=== PATIENT | female | born 1980 | race Hispanic/Latino ===

== ENCOUNTER → 2016-05-30 | Outpatient (CLI) | payer BC ==
[~2016-05-30] MED LIST: PANT40TA2 PO
[2016-05-30 10:06] LABS: MEAN PLATELET VOLUME 9.9 FL (7.4-10.4); RED BLOOD COUNT 4.63 10^6/uL (4.35-5.85); RED CELL DISTRIBUTION WIDTH 12.1 % (10.0-14.5); WHITE BLOOD COUNT 8.7 10^3/uL (4.3-11.0)
[2016-05-30 10:35] LABS: ALANINE AMINOTRANSFERASE 11 U/L (0-55); ALBUMIN 4.3 G/DL (3.2-4.5); ANION GAP 7 MMOL/L (5-14); ASPARTATE AMINO TRANSFERASE 14 U/L (5-34); BLOOD UREA NITROGEN 11 MG/DL (7-18); BUN/CREATININE RATIO 14; CALCIUM 9.3 MG/DL (8.5-10.1); CARBON DIOXIDE 25 MMOL/L (21-32); CHLORIDE 106 MMOL/L (98-107); CREATININE SERUM 0.76 MG/DL (0.60-1.30); GFR ESTIMATED > 60; GLUCOSE 101 MG/DL (70-105); POTASSIUM 4.1 MMOL/L (3.6-5.0); SODIUM 138 MMOL/L (135-145); TOTAL PROTEIN 7.3 G/DL (6.4-8.2)
[2016-05-30 10:55] LABS: THYROID STIMULATING HORMONE 1.23 UIU/ML (0.35-4.94)
== END ==
LOC: LAB 09:40
PROVIDERS: ATTEND Nurse Practitioner Community Health
DX: F41.9 Anxiety disorder, unspecified (principal)
CPT/HCPCS: 36415; 80053; 84439; 84443; 85027

== ENCOUNTER 2018-03-13 14:25 | Inpatient (IN) | payer BC ==
[~2018-03-13] VITALS: Ht 157.5 cm; Wt 59.9 kg
[2018-03-13] VITALS (14 sets, daily range): BP systolic 86–113; BP diastolic 50–77
--- NOTE | 2018-03-13 14:15 | NUR ---
GUY COLLIER presented to unit via AMBULATION from DR DILLARD'S OFFICE, accompanied by DR DILLARD, with c/o INDUCTION OF LABOR. GUY COLLIER weighed, gowned, voided, and to bed. EFHM and TOCO applied, VS taken. GUY COLLIER oriented to bed controls, call light, TV, heat, and A/C controls.
[2018-03-13] MEDS: CATHETER FLUSH 10 ML SYR IV SCH ×2 (14:35→23:00)
--- OUTSIDE RECORDS SUMMARY | 2018-03-13 15:39 | XMS REPORT ---
Author Author MILTON MONTOYA Organization [employer] Address Unknown Phone Unavailable Care Team Providers Care Manager Product Name Role Phone MILTON MONTOYA CP Unavailable Allergies, Adverse Reactions, Alerts Substance Reaction Event Type Penicillin V Potassium Info Not Available Drug Allergy Problems Problem Type Condition Code Onset Dates Condition Status Problem Costochondritis 733.6 Active Problem Abdominal pain, left lower quadrant 789.04 Active Problem Acute pharyngitis 462 Active Assessment Abdominal discomfort R10.9 Active Medications No Known Medications Procedures Procedure Coding System Code Date Office Visit, Est Pt., Level 3 CPT-4 14541 August 18, 2015 IMMUNOASSAY,INFECTIOUS AGENT CPT-4 05998 August 18, 2015 Vital Signs Date/Time: August 18, 2015 Cardiac Monitoring Heart Rate 76 bpm Weight 117.4 lbs Height 61 in Blood Pressure Diastolic 62 mmHg Blood Pressure Systolic 102 mmHg Results No Known Results Summary Purpose [employer] Submission
--- OUTSIDE RECORDS SUMMARY | 2018-03-13 15:39 | XMS REPORT ---
Author Author ERNIE GALLOWAY Organization [facility] Address [address] [place] [address] Care Team Providers Care Instructional Systems Designer Name Role Phone ERNIE GALLOWAY Unavailable PROBLEMS Type Condition ICD9-CM Code ZSS08-FB Code Onset Dates Condition Status SNOMED Code Problem Anxiety disorder, unspecified F41.9 Active 78389635 Problem Hyperventilation syndrome F45.8 Active 778060338 Problem Abdominal pain, left lower quadrant 789.04 Active 392088981 Problem Acute pharyngitis 462 Active 382297988 Problem Costochondritis 733.6 Active 14229593 ALLERGIES No Information ENCOUNTERS Encounter Location Date Diagnosis [facility] [id number] [place] [phone] Oct, Acute cystitis without hematuria N30.00 [facility] [id number] [place] [address] May, [facility] IN [facility] [id number] [place] [phone] May, Anxiety disorder, unspecified F41.9 and Hyperventilation syndrome F45.8 [facility] [id number] [place] [address] Aug, Abdominal discomfort R10.9 [facility] [id number] [place] [address] May, [facility] [address] [address] May, [facility] [id number] [place] [address] Dec, [facility] [address] [address] Dec, [facility] [id number], [place] [address] Dec, [facility] [address] [address] Dec, [facility] [id number], [place] [address] Dec, [facility] [id number] [place] [address] Sep, [facility] [id number] [place] [address] Feb, [facility] [id number], [place] [address] Feb, [facility] [id number], [place] [address] Feb, [facility] [id number] [address] Apr, IMMUNIZATIONS No Known Immunizations SOCIAL HISTORY Never Assessed REASON FOR VISIT congestion PLAN OF CARE VITAL SIGNS MEDICATIONS No Known Medications RESULTS No Results PROCEDURES No Known procedures INSTRUCTIONS MEDICATIONS ADMINISTERED No Known Medications
--- OUTSIDE RECORDS SUMMARY | 2018-03-13 15:39 | XMS REPORT ---
Author Author ERNIE GALLOWAY Organization [facility] Address [address] [place] [address] Care Team Providers Care Java Software Name Role Phone ERNIE GALLOWAY Unavailable PROBLEMS Type Condition ICD9-CM Code UKS41-LO Code Onset Dates Condition Status SNOMED Code Problem Anxiety disorder, unspecified F41.9 Active 28385923 Problem Hyperventilation syndrome F45.8 Active 458116939 Problem Abdominal pain, left lower quadrant 789.04 Active 332475294 Problem Acute pharyngitis 462 Active 053387301 Problem Costochondritis 733.6 Active 20035270 ALLERGIES No Known Allergies ENCOUNTERS Encounter Location Date Diagnosis [facility] [id number] [place] [address] Oct, Acute cystitis without hematuria N30.00 [facility] [id number] [place] [address] May, [facility] [id number] [place] [address] May, Anxiety disorder, unspecified F41.9 and Hyperventilation syndrome F45.8 [facility] [id number] [place] [address] Aug, Abdominal discomfort R10.9 [facility] [id number] [place] [address] May, [facility] [address] [address] May, [facility] [id number] [place] [address] Dec, [facility] [address] [address] Dec, [facility] [id number] [address] Dec, [facility] [address] [place] [address] Dec, [facility] [address] [address] Dec, [facility] [id number] [place] [address] Sep, [facility] [id number] [place] [address] Feb, [facility] [id number] [place] [address] Feb, [facility] [address] [place] [address] Feb, [facility] [address] [place] [address] Apr, IMMUNIZATIONS No Known Immunizations SOCIAL HISTORY Never Assessed REASON FOR VISIT Lower back pain for about 1 week [facility] PLAN OF CARE VITAL SIGNS Height 61 in 2016-11-03 Weight 120.4 lbs 2016-11-03 Temperature 98.1 degrees Fahrenheit 2016-11-03 Heart Rate 60 bpm 2016-11-03 Respiratory Rate 18 2016-11-03 BMI 22.75 kg/m2 2016-11-03 Blood pressure systolic 98 mmHg 2016-11-03 Blood pressure diastolic 62 mmHg 2016-11-03 MEDICATIONS Medication Instructions Dosage Frequency Start Date End Date Duration Status Macrobid 100 MG Orally every 12 hrs 1 capsule with food 12h Oct, Oct, 7 day(s) Active HydrOXYzine HCl 25 MG Orally every 6 hrs 1 tablet as needed for anxiety 6h May, Active Diflucan 150 MG 1 tablet Oct, Nov, 10 day(s) Active RESULTS Name Result Date Reference Range UA LONG DIP (IN HOUSE) 2016-11-03 Lot # [id number] Exp date 2017-10-11 Clarity clear Color yellow Odor none GLU negative KATHIA negative KET negative SG 1.025 BLO negative pH 7.0 Protein negative URO 0.2 NIT negative ANDI negative Lot # [id number] Exp date May 2017 PROCEDURES Procedure Date Ordered Result Body Site URINALYSIS, AUTO, W/O SCOPE Nov 03, 2016 INSTRUCTIONS MEDICATIONS ADMINISTERED No Known Medications
--- OUTSIDE RECORDS SUMMARY | 2018-03-13 15:40 | XMS REPORT | Continuity of Care Document ---
Author Author [facility] Address Unknown Phone Unavailable Allergies Active Description Code Type Severity Reaction Onset Reported/Identified Relationship to Patient Clinical Status Yes No Known Drug Allergies [id number] Drug Allergy Unknown N/A 05/19/2007 Medications There is no data. Problems Date Dx Coded Attending Type Code Diagnosis Diagnosed By 09/26/2007 616.10 Vaginitis And Vulvovaginitis Unspecified 09/26/2007 ROBERT AVILA PA-C 616.10 Vaginitis And Vulvovaginitis Unspecified 09/26/2007 616.10 Vaginitis And Vulvovaginitis Unspecified 09/26/2007 SIOBHAN STEWART MD 616.10 Vaginitis And Vulvovaginitis Unspecified 09/02/2008 724.1 Midback Pain 09/02/2008 788.41 Urinary Frequency Increased 09/02/2008 ROBERT AVILA PA-C 724.1 Midback Pain 09/02/2008 ROBERT AVILA PA-C 788.41 Urinary Frequency Increased 09/02/2008 724.1 Midback Pain 09/02/2008 788.41 Urinary Frequency Increased 09/02/2008 SIOBHAN STEWART MD 724.1 Midback Pain 09/02/2008 SIOBHAN STEWART MD 788.41 Urinary Frequency Increased 03/06/2010 V25.02 CONTRACEPTION COUNSELING- ANY METHOD 03/06/2010 V72.31 EXPEDITIONARY FORCE COMBAT SKILLS EXAM, ROUTINE 03/06/2010 ROBERT AVILA PA-C V25.02 CONTRACEPTION COUNSELING- ANY METHOD 03/06/2010 ROBERT AVILA PA-C V72.31 EXPEDITIONARY FORCE COMBAT SKILLS EXAM, ROUTINE 03/06/2010 V25.02 CONTRACEPTION COUNSELING- ANY METHOD 03/06/2010 V72.31 EXPEDITIONARY FORCE COMBAT SKILLS EXAM, ROUTINE 03/06/2010 SIOBHAN STEWART MD V25.02 CONTRACEPTION COUNSELING- ANY METHOD 03/06/2010 SIOBHAN STEWART MD V72.31 EXPEDITIONARY FORCE COMBAT SKILLS EXAM, ROUTINE 04/19/2010 780.2 Syncope And Collapse 04/19/2010 785.1 Palpitations 04/19/2010 ROBERT AVILA PA-C 780.2 Syncope And Collapse 04/19/2010 ROBERT AVILA PA-C 785.1 Palpitations 04/19/2010 780.2 Syncope And Collapse 04/19/2010 785.1 Palpitations 04/19/2010 SIOBHAN STEWART MD 780.2 Syncope And Collapse 04/19/2010 SIOBHAN STEWART MD 785.1 Palpitations 04/27/2010 610.1 DIFFUSE CYSTIC MASTOPATHY 04/27/2010 799.21 Nervousness 04/27/2010 ROBERT AVILA PA-C 610.1 DIFFUSE CYSTIC MASTOPATHY 04/27/2010 ROBERT AVILA PA-C 799.21 Nervousness 04/27/2010 610.1 DIFFUSE CYSTIC MASTOPATHY 04/27/2010 799.21 Nervousness 04/27/2010 SIOBHAN STEWART MD 610.1 DIFFUSE CYSTIC MASTOPATHY 04/27/2010 SIOBHAN STEWART MD 799.21 Nervousness 03/03/2012 733.6 TIETZE'S DISEASE 03/03/2012 ROBERT AVILA PA-C 733.6 TIETZE'S DISEASE 03/03/2012 733.6 TIETZE'S DISEASE 03/03/2012 SIOBHAN STEWART MD 733.6 TIETZE'S DISEASE 12/19/2012 SIOBHAN STEWART MD 462 PHARYNGITIS ACUTE 01/06/2013 SIOBHAN STEWART MD 789.04 ABDOMINAL PAIN LEFT LOWER QUADRANT 09/24/2014 Ot 592.0 09/24/2014 Ot 789.09 09/24/2014 Ot 611.71 09/24/2014 Ot 724.5 09/24/2014 Ot 786.50 09/24/2014 JOIE BUSH, MATTHEW March Ot 611.71 09/24/2014 Ot 611.71 09/24/2014 Ot 620.2 09/24/2014 Ot 625.9 09/24/2014 Ot 789.00 09/24/2014 Ot 790.5 09/28/2014 CHEPE VEGA TODDLER GUIDE Ot 625.9 10/19/2014 CHEPE VEGA TODDLER GUIDE Ot 625.9 10/21/2014 CHEPE VEGA TODDLER GUIDE Ot 625.9 06/10/2015 Ot 592.0 CALCULUS OF KIDNEY 06/10/2015 Ot 789.09 ABDOMINAL PAIN, OTHER SPECIFIED SITE 06/10/2015 Ot 611.71 MASTODYNIA 06/10/2015 Ot 724.5 BACKACHE NOS 06/10/2015 Ot 786.50 CHEST PAIN NOS 06/10/2015 JOIE BUSH, MATTHEW March Ot 611.71 MASTODYNIA 06/10/2015 Ot 611.71 MASTODYNIA 06/10/2015 Ot 620.2 OVARIAN CYST NEC/NOS 06/10/2015 Ot 625.9 FEM GENITAL SYMPTOMS NOS 06/10/2015 Ot 789.00 ABDOMINAL PAIN, UNSPECIFIED SITE 06/10/2015 Ot 790.5 ABN SERUM ENZY LEVEL NEC 06/10/2015 HCEPE VEGA TODDLER GUIDE Ot 625.9 FEM GENITAL SYMPTOMS NOS 06/14/2015 FELIPE WILL DIESEL ENGINE PIPE FITTER Ot K59.00 CONSTIPATION, UNSPECIFIED 06/15/2015 Ot 592.0 CALCULUS OF KIDNEY 06/15/2015 Ot 789.09 ABDOMINAL PAIN, OTHER SPECIFIED SITE 06/15/2015 Ot 611.71 MASTODYNIA 06/15/2015 Ot 724.5 BACKACHE NOS 06/15/2015 Ot 786.50 CHEST PAIN NOS 06/15/2015 JOIE BUSH, MATTHEW March Ot 611.71 MASTODYNIA 06/15/2015 Ot 611.71 MASTODYNIA 06/15/2015 Ot 620.2 OVARIAN CYST NEC/NOS 06/15/2015 Ot 625.9 FEM GENITAL SYMPTOMS NOS 06/15/2015 Ot 789.00 ABDOMINAL PAIN, UNSPECIFIED SITE 06/15/2015 Ot 790.5 ABN SERUM ENZY LEVEL NEC 06/15/2015 CHEPE VEGA TODDLER GUIDE Ot 625.9 FEM GENITAL SYMPTOMS NOS 06/15/2015 FELIPE WILL DIESEL ENGINE PIPE FITTER Ot K59.00 CONSTIPATION, UNSPECIFIED 06/15/2015 FELIPE WILL DIESEL ENGINE PIPE FITTER Ot K59.00 CONSTIPATION, UNSPECIFIED 07/07/2015 FELIPE WILL DIESEL ENGINE PIPE FITTER Ot K59.00 CONSTIPATION, UNSPECIFIED 10/03/2015 FELIPE WILL DIESEL ENGINE PIPE FITTER Ot K59.00 CONSTIPATION, UNSPECIFIED 10/03/2015 JENNIFER BUSH, MARCIA Ferrell Ot K21.9 GASTRO-ESOPHAGEAL REFLUX DISEASE WITHOUT 10/03/2015 JENNIFER BUSH, MARCIA Ferrell Ot Z01.818 ENCOUNTER FOR OTHER PREPROCEDURAL EXAMIN 10/03/2015 JENNIFER BUSH, MARCIA Ferrell Ot K20.9 ESOPHAGITIS, UNSPECIFIED 10/03/2015 JENNIFER BUSH, MARCIA Ferrell Ot K25.9 GASTRIC ULCER, UNSP ACUTE OR CHRONIC, 10/03/2015 JENNIFER BUSH, MARCIA Ferrell Ot R19.4 CHANGE IN BOWEL HABIT 10/04/2015 JENNIFER BUSH, MARCIA Ferrell Ot K20.9 ESOPHAGITIS, UNSPECIFIED 10/04/2015 JENNIFER BUSH, MARCIA Ferrell Ot K25.9 GASTRIC ULCER, UNSP ACUTE OR CHRONIC, 10/04/2015 JENNIFER BUSH, MARCIA Ferrell Ot R19.4 CHANGE IN BOWEL HABIT 06/05/2016 ERNIE GALLOWAY Ot F41.9 ANXIETY DISORDER, UNSPECIFIED 06/20/2016 ERNIE GALLOWAY Ot F41.9 ANXIETY DISORDER, UNSPECIFIED 07/02/2016 FELIPE WILL Olvin DIESEL ENGINE PIPE FITTER Ot K59.00 CONSTIPATION, UNSPECIFIED 09/30/2017 ERNIE GALLOWAY Ot F41.9 ANXIETY DISORDER, UNSPECIFIED 10/03/2017 ERNIE GALLOWAY Ot F41.9 ANXIETY DISORDER, UNSPECIFIED 10/07/2017 KORY DILLARD DO S Ot Z36.89 ENCOUNTER FOR OTHER SPECIFIED 10/07/2017 TROYECH KORY TODD S Ot Z3A.17 17 WEEKS GESTATION OF 10/23/2017 TROYECH KORY TODD S Ot Z36.89 ENCOUNTER FOR OTHER SPECIFIED 10/23/2017 TROYECH DOKORY S Ot Z3A.17 17 WEEKS GESTATION OF Procedures Code Description [place] [address] ROUTINE VENIPUNCTURE 03/04/2012 96594 UA W/ CULTURE IF INDICATED 03/04/2012 68105 CMP 03/04/2012 2852218 GFR CALC (RESULT ONLY) 03/04/2012 21344 ROUTINE VENIPUNCTURE 01/06/[address] ABDOMEN & PELVIS W/O CONTRAST 01/06/2013 94790 UA W/ CULTURE IF INDICATED 01/06/2013 83994 URINE TEST (IN- HOUSE) 01/06/2013 65646 CBC 01/07/2013 1442357 GFR CALC (RESULT ONLY) 01/07/2013 11699 CMP 01/07/2013 Results Test Result Range Urine beta human chorionic gonadotropin (hCG) measurement - 10/03/15 10:23 Urine beta human chorionic gonadotropin (hCG) measurement NEGATIVE NEGATIVE Automated blood complete blood count (hemogram) panel - 05/30/16 10:00 Blood leukocytes automated count (number/volume) 8.7 10*3/uL 4.3-11.0 Blood erythrocytes automated count (number/volume) 4.63 10*6/uL 4.35-5.85 Venous blood hemoglobin measurement (mass/volume) 14.0 g/dL 11.5-16.0 Blood hematocrit (volume fraction) 40 % 35-52 Automated erythrocyte mean corpuscular volume 87 [foz_us] 80-99 Automated erythrocyte mean corpuscular hemoglobin (mass per erythrocyte) 30 pg 25-34 Automated erythrocyte mean corpuscular hemoglobin concentration measurement ( mass/volume) 35 g/dL 32-36 Automated erythrocyte distribution width ratio 12.1 % 10.0-14.5 Automated blood platelet count (count/volume) 307 10*3/uL 130-400 Automated blood platelet mean volume measurement 9.9 [foz_us] 7.4-10.4 Comprehensive metabolic panel - 05/30/16 10:00 Serum or plasma sodium measurement (moles/volume) 138 mmol/L 135-145 Serum or plasma potassium measurement (moles/volume) 4.1 mmol/L 3.6-5.0 Serum or plasma chloride measurement (moles/volume) 106 mmol/L 98-107 Carbon dioxide 25 mmol/L 21-32 Serum or plasma anion gap determination (moles/volume) 7 mmol/L 5-14 Serum or plasma urea nitrogen measurement (mass/volume) 11 mg/dL 7-18 Serum or plasma creatinine measurement (mass/volume) 0.76 mg/dL 0.60-1.30 Serum or plasma urea nitrogen/creatinine mass ratio 14 NRG Serum or plasma creatinine measurement with calculation of estimated glomerular filtration rate > NRG Serum or plasma glucose measurement (mass/volume) 101 mg/dL 70-105 Serum or plasma calcium measurement (mass/volume) 9.3 mg/dL 8.5-10.1 Serum or plasma total bilirubin measurement (mass/volume) 1.0 mg/dL 0.1-1.0 Serum or plasma alkaline phosphatase measurement (enzymatic activity/volume) 72 U/L 40-136 Serum or plasma aspartate aminotransferase measurement (enzymatic activity/ volume) 14 U/L 5-34 Serum or plasma alanine aminotransferase measurement (enzymatic activity/volume ) 11 U/L 0-55 Serum or plasma protein measurement (mass/volume) 7.3 g/dL 6.4-8.2 Serum or plasma albumin measurement (mass/volume) 4.3 g/dL 3.2-4.5 THYROID STIMULATING HORMONE - 05/30/16 10:00 THYROID STIMULATING HORMONE 1.23 u[iU]/mL 0.35-4.94 Serum or plasma thyroxine (T4) free measurement (mass/volume) - 05/30/16 10:00 Serum or plasma thyroxine (T4) free measurement (mass/volume) 1.05 ng/dL 0.70-1.48 Encounters ACCT No. Visit Date/Time Discharge Status Pt. Type Provider Facility Loc./Unit Complaint [id number] 01/06/2013 15:13:00 01/06/2013 23:59:59 CLS Outpatient SIOBHAN STEWART MD [id number] 03/04/2012 08:44:00 03/04/2012 23:59:59 CLS Outpatient ROBERT AVILA PA-C [id number] 03/03/2012 17:58:00 03/03/2012 23:59:59 CLS Outpatient [id number] 03/04/2012 08:44:00 Document Registration [id number] 11/03/2016 10:00:00 11/03/2016 23:59:59 CLS [facility] 05/201702/07/2018 10:15:23 02/07/2018 23:59:59 CLS Outpatient Juju Bradley [id number] 10/04/2017 15:55:00 10/04/2017 23:59:59 CLS Outpatient KORY DILLARD DO [facility] RAD [id number] 05/30/2016 09:40:00 05/30/2016 23:59:59 CLS Outpatient ERNIE GALLOWAY [facility] LAB ANXIETY [id number] 10/03/2015 10:12:00 10/03/2015 14:05:00 DIS Outpatient MARCIA RODRIGUEZ MD [facility] SDC IRREGULAR BOWEL MOVEMENTS; GERD [id number] 09/29/2015 05:58:00 09/29/2015 23:59:59 CLS Outpatient MARCIA RODRIGUEZ MD [facility] PREOP IRREGULAR BOWEL MOVEMENT; GERD [id number] 06/10/2015 16:08:00 06/10/2015 23:59:59 CLS Outpatient FELIPE WILL APRN [facility] RAD LLQ PAIN,EPIGASTRIC, LUQ [id number] 09/24/2014 14:23:00 09/24/2014 23:59:59 CLS Outpatient CHEPE VEGA [facility] RAD [id number] 06/24/2012 10:43:00 06/24/2012 23:59:59 CLS Outpatient MATTHEW SALTER MD [facility] RAD [id number] 03/13/2018 14:25:00 ACT Inpatient KORY DILLARD DO [facility] LDRP INDUCTION OF LABOR [id number] 09/24/2014 14:21:00 Document Registration [id number] 09/24/2014 14:21:00 Document Registration [id number] 05/05/2012 10:15:00 Document Registration
[2018-03-13] MEDS ORDERED: D5 LR IV SOLUTION 1,000 ML IV SCH (15:48)
[2018-03-13] MEDS ORDERED: OXYTOCIN/NORMAL SALINE 500 ML IV ONE ×3 (15:51→18:30)
[2018-03-13] MEDS ORDERED: LACTATED RINGERS 1,000 ML IV ONE (15:51)
[2018-03-13] MEDS ORDERED: LIDOCAINE/EPI 2% 1:200,00 (XYLOCAINE) 10 ML VIAL ONE (15:51)
[2018-03-13 15:55] LABS: BASOPHILS % (AUTO) 0 % (0-10); EOSINOPHILS % (AUTO) 0 % (0-10); HEMATOCRIT 37 % (35-52); HEMOGLOBIN 12.5 G/DL (11.5-16.0); LYMPHOCYTES # (AUTO) 1.3 X 10^3 (1.0-4.0); LYMPHOCYTES % (AUTO) 19 % (12-44); MEAN CORPUSCULAR HEMOGLOBIN 30 PG (25-34); MEAN CORPUSCULAR HGB CONC 34 G/DL (32-36); MEAN CORPUSCULAR VOLUME 90 FL (80-99); MEAN PLATELET VOLUME 9.5 FL (7.4-10.4); MONOCYTES # (AUTO) 0.5 X 10^3 (0.0-1.0); MONOCYTES % (AUTO) 7 % (0-12); NEUTROPHILS # (AUTO) 4.9 X 10^3 (1.8-7.8); NEUTROPHILS % (AUTO) 73 % (42-75); PLATELET COUNT 315 10^3/uL (130-400); RED CELL DISTRIBUTION WIDTH 13.1 % (10.0-14.5); WHITE BLOOD COUNT 6.8 10^3/uL (4.3-11.0)
[2018-03-13] MEDS ORDERED: LIDOCAINE/EPI 1%-1:200,000 (XYLOCAINE) 10 ML VIAL INJ ONE (16:45)
[2018-03-13] MEDS ORDERED: LACTATED RINGERS 1,000 ML IV SCH (16:45)
[2018-03-13] MEDS ORDERED: FLU QUADRIvalent (5+ YOA) 2018-2019 (AFLURIA) 0.5 ML IM ONE (17:15)
[2018-03-13] MEDS: IBUPROFEN 600 MG (MOTRIN) TAB PO SCH (17:44)
[2018-03-13] MEDS ORDERED: IBUPROFEN 600 MG (MOTRIN) TAB PO ONE (17:45)
[2018-03-13] MEDS ORDERED: BENZOCAINE/MENTHOL (DERMOPLAST) 56 ML CAN TP ONE (17:45)
--- NOTE | 2018-03-13 17:52 | NUR ---
FFU/2 LT/MOD LOCHIA NOTED, PT C/O VAGINA BURNING, MOTRIN GIVEN PO, DERMAPLAST PER ORDER, ICE PACK TO PERINEUM.
--- NOTE | 2018-03-13 18:01 | History & Physical-OB ---
OB - Chief Complaint & HPI Date/Time Date of Admission: Date of Admission: Mar 13, 2018 at 2:25 pm Date seen by a Provider: Mar 13, 2018 Time Seen by a Provider: 17:59 Chief Complaint/History OB-Reason for Admission/Chief: Onset of Labor Hx : 3 Hx Para: 2 Expected Date of Delivery: Mar 15, 2018 Gestational Age in Weeks: 39 Gestational Age in Days: 5 Admission Nurse Assessment Rev: Yes History of Labs O pos Antibody neg RI RPR NR HBsAg NR HIV NR GC neg GBS neg Allergies and Home Medications Allergies Coded Allergies: No Known Drug Allergies (Verified Allergy, Unknown, 05/19/07) Home Medications Pantoprazole Sodium 40 Mg Tablet.dr, 40 MG PO DAILY Prescribed by: MARCIA RODRIGUEZ on 10/03/15 1320 Patient Home Medication List Home Medication List Reviewed: Yes OB - History Hx of Present Care: Yes Ultrasounds: Normal mid trimester US Obstetrical Complications: None Medical Complications: None Delivery History Adverse Rxn to Tranfusion: No Patient Past Medical History n/a Social History/Family History Recent Infectious Disease Expo: No Alcohol Use: Denies Use Recreational Drug Use: No OB - Admission Exam Physical Exam Vitals: Vital Signs 03/13/18 03/13/18 15:00 16:30 Temp 97.9 Pulse 75 Resp 18 B/P (MAP) 102/66 (78) O2 Delivery Room Air HEENT: NCAT Heart: Rhythm Normal Lungs: Clear Abdomen: Gravid Extremities: Normal Reflexes: Normal Cervical Dilatation: 6cm Effacement: 75% Station: -1 Heart Rate: 130's Accelerations: Accelerations Present Decelerations: No Decelerations Short Term Variability: Present Long-Term Variability: Average (6-25) Contractions on Admission: 6-10 Minutes Apart Intensity: Firm Labs Laboratory Tests Test 03/13/18 15:35 Range/Units White Blood Count 6.8 4.3-11.0 10^3/uL Red Blood Count 4.13 L 4.35-5.85 10^6/uL Hemoglobin 12.5 11.5-16.0 G/DL Hematocrit 37 35-52 % Mean Corpuscular Volume 90 80-99 FL Mean Corpuscular Hemoglobin 30 25-34 PG Mean Corpuscular Hemoglobin Concent 34 32-36 G/DL Red Cell Distribution Width 13.1 10.0-14.5 % Platelet Count 315 130-400 10^3/uL Mean Platelet Volume 9.5 7.4-10.4 FL Neutrophils (%) (Auto) 73 42-75 % Lymphocytes (%) (Auto) 19 12-44 % Monocytes (%) (Auto) 7 0-12 % Eosinophils (%) (Auto) 0 0-10 % Basophils (%) (Auto) 0 0-10 % Neutrophils # (Auto) 4.9 1.8-7.8 X 10^3 Lymphocytes # (Auto) 1.3 1.0-4.0 X 10^3 Monocytes # (Auto) 0.5 0.0-1.0 X 10^3 Eosinophils # (Auto) 0.0 0.0-0.3 10^3/uL Basophils # (Auto) 0.0 0.0-0.1 10^3/uL OB - Assessment/Plan/Diagnosis Assessment Assessment: active labor Admission Dx 38 yo @ 39 weeks GDMA1 AMA GBS neg Admission Status: Inpatient Order (span 2 midnights) Reason for Inpatient Admission: Active labor term Plan Plan: Expectant Management (w/ AROM) KORY DILLARD DO Mar 13, 2018 6:01 pm
--- NOTE | 2018-03-13 18:01 | NUR ---
PITOCIN 2ND BAG STARTED AT 125ML/HR.
--- NOTE | 2018-03-13 18:04 | OB Labor & Delivery Record ---
L&D History Date of Service Date of Service: Mar 13, 2018 History Expected Date of Delivery: Mar 15, 2018 Gestational Age in Weeks: 39 Hx : 3 Hx Para: 2 Complications Events: Gestational Diabetes, Routine care Operative Indications (Cesarea: N/A-Vaginal Delivery Intrapartal Events: None L&D Stage1 Stage One Onset of Labor - Date: Mar 13, 2018 Monitors and Tracing Monitor Mode: External Heart Rate: 145 Monitor Accelerations: Uniform Station: -2 Short Term Variability: Present Presentation: Vertex Vital Signs VS - Last 72 Hours, by Label 03/13/18 03/13/18 03/13/18 03/13/18 15:00 15:30 16:00 16:30 Temp 97.9 Pulse 75 79 75 75 Resp 18 18 18 18 B/P (MAP) 103/62 (76) 100/67 (78) 103/61 (75) 102/66 (78) O2 Delivery Room Air Room Air Room Air Room Air Rupture of Membranes Spontaneous Ruture of Membrane: No Amniotic Membrane Rupture Time: 1550 Amniotic Membrane Fluid Desc.: Clear Vaginal Bleeding Description: Normal Show L&D Stage2 Stage Two Stage II Date: Mar 13, 2018 Monitors and Tracing Monitor Mode: External Heart Rate: 145 Monitor Accelerations: Uniform Monitor Decelerations: Variable Form Coverer Variability: Average (6-10) Short Term Variability: Present Position: Right Occiput Anterior Presentation: Vertex Cord Descript/Complications Cord Vessel Description: 3 Vessels Delivery Type Infant Delivery Method: Spontaneous Vaginal Anterior Shoulder: Right Episiotomy/Perineal Laceration Laceraction(s)/Extensions: No Condition of Infant Delivery 1 minute Comment: 8 5 minute Comment: 9 Notes Live female infant weight 6lbs 15 oz, APGARs 8/9 Condition of Infant Condition of : Living Exam: No Observed Abnormalities Resuscitation Resuscitation: N/A - Spontaneous Resp L&D Stage3 Stage Three Stage III Date: Mar 13, 2018 Pictocin Pitocin Administration Comment: 30 mu wide open at delivery of placenta Placenta Delivery Placenta Delivery: Spontaneous Delivery Summary Summary Estimated blood loss (mL): 300 Attending at delivery: Kory Dillard DO Condition of Delivery Examined: Cervix Examined, Uterus Explored Post Hemorrhage: Yes Condition of Mother stable Condition of Infant (s) stable KORY DILLARD DO Mar 13, 2018 6:04 pm
[2018-03-13] MEDS ORDERED: OXYTOCIN/NORMAL SALINE 500 ML IV SCH (18:05)
--- NOTE | 2018-03-13 18:07 | Discharge Inst-Women's Service ---
Discharge Inst-Women's Serv Depart Medication/Instructions New, Converted or Re-Newed RX: RX on Chart Final Diagnosis PPD 2 NVD Consults/Follow Up Additional Follow Up: Yes Orders/Referrals Dr. Dillard in 6 weeks Activity Activity: Activity as Tolerated Driving Instructions: No Driving for 1 Week NO SMOKING: NO SMOKING Nothing Inside Vagina: No Douching, No Lotsee, No Tampons Diet Discharge Diet: No Restrictions Symptoms to Report to : Bleeding Excessive, Pain Increased, Fever Over 101 Degrees F, Vaginal Bleeding Increase, Questions/Concerns For Any Problems or Questions: Contact Your Physician KORY DILLARD DO Mar 13, 2018 6:06 pm
[2018-03-13] MEDS ORDERED: Benzocaine/Menthol TP (18:09)
[2018-03-13] MEDS ORDERED: IBUP-844 PO (18:09)
[2018-03-13] MEDS ORDERED: FERR325T18 PO (18:09)
[2018-03-13] MEDS ORDERED: ACHD5005 PO (18:09)
[2018-03-13] MEDS ORDERED: PNV1TABL67 PO (18:09)
[2018-03-13] MEDS ORDERED: TETANUS,DIPTH,PERTUSS P/F (BOOSTRIX) 0.5 ML VIAL IM ONE (18:15)
[2018-03-13] MEDS ORDERED: DIBUCAINE (NUPERCAINAL) 1% OINT 30 GM TOP PRN (18:15)
[2018-03-13] MEDS ORDERED: BENZOCAINE/MENTHOL (DERMOPLAST) 56 ML CAN TP PRN (18:15)
[2018-03-13] MEDS ORDERED: WITCH HAZEL(TUCKS) 40 EA JAR TOP PRN (18:15)
[2018-03-13] MEDS ORDERED: HYDROcodone/APAP 5 MG/325 MG (LORTAB) TAB PO PRN (18:15)
[2018-03-13] MEDS ORDERED: MEASLES,MUMPS,RUBELLA 1 EA INJ SQ ONE (18:15)
--- NOTE | 2018-03-13 18:40 | NUR ---
FFU/1, MOD LOCHIA NOTED, PERICARE COMPLETED, PAD AND PANTIES CHANGED, PT REPOSITIONED IN BED, NO C/O NOTED, AT BEDSIDE IN [employer] ARMS.
[2018-03-14] MEDS: IBUPROFEN 600 MG (MOTRIN) TAB PO SCH ×4 (01:06→19:14)
[2018-03-14 01:11] VITALS: BP 85/53
[2018-03-14] MEDS: DOCUSATE SODIUM 100 MG (COLACE) CAP PO SCH ×3 (01:44→21:24)
[2018-03-14 03:56] VITALS: BP 88/50
[2018-03-14 04:35] LABS: BASOPHILS % (AUTO) 0 % (0-10); EOSINOPHILS % (AUTO) 0 % (0-10); HEMATOCRIT 35 % (35-52); HEMOGLOBIN 11.7 G/DL (11.5-16.0); LYMPHOCYTES # (AUTO) 1.6 X 10^3 (1.0-4.0); LYMPHOCYTES % (AUTO) 13 % (12-44); MEAN CORPUSCULAR HEMOGLOBIN 31 PG (25-34); MEAN CORPUSCULAR HGB CONC 34 G/DL (32-36); MEAN CORPUSCULAR VOLUME 90 FL (80-99); MEAN PLATELET VOLUME 9.4 FL (7.4-10.4); MONOCYTES # (AUTO) 0.8 X 10^3 (0.0-1.0); MONOCYTES % (AUTO) 7 % (0-12); NEUTROPHILS # (AUTO) 9.8 X 10^3 (1.8-7.8); NEUTROPHILS % (AUTO) 80 % (42-75); PLATELET COUNT 319 10^3/uL (130-400); RED CELL DISTRIBUTION WIDTH 13.3 % (10.0-14.5); WHITE BLOOD COUNT 12.3 10^3/uL (4.3-11.0)
[2018-03-14] MEDS: CATHETER FLUSH 10 ML SYR IV SCH ×2 (06:13)
--- NOTE | 2018-03-14 07:00 | NUR ---
REPORT FROM PAMELA PHILLIP
--- NOTE | 2018-03-14 08:20 | NUR ---
DR DILLARD HERE NEW ORDERS RECEIVED.
[2018-03-14 08:26] VITALS: BP 84/54
--- NOTE | 2018-03-14 08:51 | Postpartum Progress Note ---
Note Note Day # 1 Subjective: Patient is without complaints. Ambulating, voiding. Tolerating a regular diet without nausea or vomiting. Normal lochia. Pain is well controlled with oral pain medications. Objective: Physical Exam: General - Alert and oriented, no apparent distress Abdomen - Soft, appropriately tender to palpation, non-distended, fundus firm at umbilicus Extremities - no edema, negative Akbar's bilaterally Assessment: PPD 1 NVD AMA GDMA1 Plan: Routine care. Encourage breast feeding. Encourage ambulation. Ferrous sulfate supplementation. Plan for discharge tomorrow Vitals - Labs Vital Signs - I&O Vital Signs Date Time Temp Pulse Resp B/P (MAP) Pulse Ox O2 Delivery O2 Flow Rate FiO2 03/14/18 03:56 97.9 65 20 88/50 (63) 98 Room Air 03/14/18 01:11 98.3 78 20 85/53 (64) 99 Room Air 03/13/18 21:45 72 20 86/52 (63) Room Air 03/13/18 18:30 73 18 102/59 (73) Room Air 03/13/18 18:16 75 18 100/50 (67) Room Air 03/13/18 18:00 67 18 113/77 (89) Room Air 03/13/18 17:30 81 18 108/71 (83) Room Air 03/13/18 17:05 80 18 95/52 (66) Room Air 03/13/18 16:30 75 18 102/66 (78) Room Air 03/13/18 16:00 75 18 103/61 (75) Room Air 03/13/18 15:30 79 18 100/67 (78) Room Air 03/13/18 15:00 97.9 75 18 103/62 (76) Room Air Labs Laboratory Tests 03/13/18 15:35: White Blood Count 6.8, Red Blood Count 4.13L, Hemoglobin 12.5, Hematocrit 37, Mean Corpuscular Volume 90, Mean Corpuscular Hemoglobin 30, Mean Corpuscular Hemoglobin Concent 34, Red Cell Distribution Width 13.1, Platelet Count 315, Mean Platelet Volume 9.5, Neutrophils (%) (Auto) 73, Lymphocytes (%) (Auto) 19, Monocytes (%) (Auto) 7, Eosinophils (%) (Auto) 0, Basophils (%) (Auto) 0, Neutrophils # (Auto) 4.9, Lymphocytes # (Auto) 1.3, Monocytes # (Auto) 0.5, Eosinophils # (Auto) 0.0, Basophils # (Auto) 0.0 03/14/18 04:10: White Blood Count 12.3H, Red Blood Count 3.83L, Hemoglobin 11.7, Hematocrit 35, Mean Corpuscular Volume 90, Mean Corpuscular Hemoglobin 31, Mean Corpuscular Hemoglobin Concent 34, Red Cell Distribution Width 13.3, Platelet Count 319, Mean Platelet Volume 9.4, Neutrophils (%) (Auto) 80H, Lymphocytes (%) (Auto) 13 , Monocytes (%) (Auto) 7, Eosinophils (%) (Auto) 0, Basophils (%) (Auto) 0, Neutrophils # (Auto) 9.8H, Lymphocytes # (Auto) 1.6, Monocytes # (Auto) 0.8, Eosinophils # (Auto) 0.0, Basophils # (Auto) 0.0 KORY DILLARD DO Mar 14, 2018 08:51
--- NOTE | 2018-03-14 11:30 | NUR ---
INITIAL ASSESSMENT COMPLETED, VSS NO DISTRESS NOTED, SEE INTERVENTIONS FOR DETAILED ASSESSMENTS, SCHEDULED MEDS GIVEN. PT SHOWER SET UP, INFO PAPERS GIVEN
[2018-03-14] MEDS: FERROUS SULF 325 MG (IRON) TAB PO SCH (11:37)
[2018-03-14] MEDS: PRENATAL VITAMIN 1 EA TAB PO SCH (11:37)
--- NOTE | 2018-03-14 11:50 | NUR ---
IV DC'D PT UP TO SHOWER.
[2018-03-14 12:00] VITALS: BP 96/54
--- NOTE | 2018-03-14 12:55 | NUR ---
ASSISTED PT AND S/O WITH ORDERING MEALS DUE TO LANGUAGE BARRIER.
[2018-03-14 19:00] VITALS: BP 85/58
--- NOTE | 2018-03-14 21:00 | NUR ---
Pt sitting up eating stork dinner. assessment completed. pt denies any needs at this time. will continue to monitor.
[2018-03-15 01:00] VITALS: BP 95/50
[2018-03-15] MEDS: IBUPROFEN 600 MG (MOTRIN) TAB PO SCH ×2 (01:22→08:57)
--- NOTE | 2018-03-15 08:10 | NUR ---
dr bruce here. new orders received.
--- NOTE | 2018-03-15 08:15 | Postpartum Progress Note ---
Note Note Day # 2 Subjective: Patient is without complaints. Ambulating, voiding. Tolerating a regular diet without nausea or vomiting. Normal lochia. Pain is well controlled with oral pain medications Objective: Physical Exam: General - Alert and oriented, no apparent distress Abdomen - Soft, appropriately tender to palpation, non-distended, fundus firm at umbilicus Extremities - no edema, negative Akbar's bilaterally Assessment: PPD 2 NVD AMA GDMA1 Plan: Routine care. Encourage breast feeding. Encourage ambulation. Ferrous sulfate supplementation. Plan for discharge today Vitals - Labs Vital Signs - I&O Vital Signs Date Time Temp Pulse Resp B/P (MAP) Pulse Ox O2 Delivery O2 Flow Rate FiO2 03/15/18 01:00 97.8 59 18 95/50 (65) 96 Room Air 03/14/18 19:00 98.0 71 18 85/58 (67) 96 Room Air 03/14/18 12:00 98.2 68 18 96/54 (68) 96 Room Air 03/14/18 08:26 97.6 62 18 84/54 (64) 97 Room Air KORY DILLARD DO Mar 15, 2018 8:15 am
[2018-03-15 08:55] VITALS: BP 91/59
[2018-03-15] MEDS: FERROUS SULF 325 MG (IRON) TAB PO SCH (08:56)
[2018-03-15] MEDS: PRENATAL VITAMIN 1 EA TAB PO SCH (08:56)
[2018-03-15] MEDS: DOCUSATE SODIUM 100 MG (COLACE) CAP PO SCH (08:56)
--- NOTE | 2018-03-15 12:00 | NUR ---
GUY COLLIER demonstrates understanding of discharge instructions and accurately returns instructions upon questioning. Copy of Post-Discharge Instructions and Medication Discharge Instructions given to patient. GUY COLLIER is able to manage continuing needs after discharge. Patients belongings returned to patient. Skin dry and intact; no breakdown noted. Patient discharged from [facility]- on 03/15/18 at 1225. GUY COLLIER left floor via w/c, accompanied by staff and family . Addendum: 03/15/18 at 1256 by LANDEN SHAVER RN left at 1225 instructions were given at 1200
== END 2018-03-15 12:25 | disposition home or self-care (01) | DRG 807 ==
LOC: LDRP 14:25
PROVIDERS: ADMIT Obstetrics & Gynecology; ATTEND Obstetrics & Gynecology
PROC: 10E0XZZ Delivery of Products of Conception, External Approach (ICD-10-PCS; principal; 2018-03-13)
DX: O24.410 Gestational diabetes mellitus in pregnancy, diet controlled (principal); Z3A.39 39 weeks gestation of pregnancy; Z37.0 Single live birth
CPT/HCPCS: 36415; 85025; 86850; 86900; 86901

== ENCOUNTER → 2019-05-19 | Outpatient (CLI) | payer BC ==
[~2019-05-19] MED LIST changes: +ACHD5005 PO; +Benzocaine/Menthol TP; +FERR325T18 PO; +HYDR-4226 PO; +IBUP-844 PO; +PNV1TABL67 PO
== END | disposition home or self-care (01) ==
LOC: PREOP 12:09
PROVIDERS: ATTEND Surgery
DX: Z01.818 Encounter for other preprocedural examination (principal)

== ENCOUNTER 2019-05-20 07:24 | Day surgery (SDC) | payer BC ==
[~2019-05-20] VITALS: Ht 157.4 cm; Wt 56.3 kg
[2019-05-20] VITALS (12 sets, daily range): BP systolic 101–116; BP diastolic 62–84
[~2019-05-20 07:24] MED LIST changes: -HYDR-4226 PO
--- OUTSIDE RECORDS SUMMARY | 2019-05-20 07:30 | XMS REPORT | CCD ---
Author Author Deja Bradley D.O. Organization [facility] Address [address] [place] [address] Phone Care Team Providers Care Reverberatory Skimmer Name Role Phone Juju Brdaley D.O., PP Unavailable CCM Unavailable Summary Purpose Interface Exchange Insurance Providers Payer name Policy type / Coverage type Covered constitution party ID Effective Begin Date Effective End Date Blue Cross Blue Shield Blue Cross/Blue Shield [id number] Unknown Family History Family History data not found Social History Social History Element Codes Description Effective Dates Tobacco history SNOMED CT: 368241626 Unknown if ever smoked 10/13 Marital status Unknown 07/28/2014 Number of children Unknown 2 07/28/2014 Employment Unknown Currently employed [employer] 07/28/2014 Number of years using tobacco Unknown [address]: 012274 Currently drinks alcohol 07/28 Has the patient ever used illegal drugs? Unknown Has nev er used illegal drugs 07/28/2014 Allergies, Adverse Reactions, Alerts Substance Reaction Codes Entered Date Inactivated Date Status * NO KNOWN FOOD ALLERGIES Unknown 07/28/2014 No Inactiv e Date Active * NO KNOWN DRUG ALLERGIES Unknown 07/28/2014 No Inactiv e Date Active Penicillin rash Unknown 02/07/2018 No Inactive Date Active * NO KNOWN ENVIRONMENTAL ALLERGIES Unknown 07/28/2014 N o Inactive Date Active Problems Condition Codes Effective Dates Condition Status Epigastric pain ICD-9: 789.06 ICD-10: R10.13 05/13/2019 Active Ventral hernia ICD-9: 553.20 ICD-10: K43.9 05/13/2019 Active Left lower quadrant pain ICD-9: 789.04 ICD-10: R10.32 04/29/2017 Active Left upper quadrant pain ICD-9: 789.02 ICD-10: R10.12 03/27/2018 Active Slow transit constipation ICD-9: 564.01 ICD-10: K59.01 03/27/2018 Active Acute upper respiratory infection, unspecified ICD-9: 465.9 ICD-10: J06.9 02/07/2018 Active Acute vaginitis ICD-9: 623.5 ICD-10: N76.0 11/02/2015 Active Amenorrhea, unspecified ICD-9: 626.0 ICD-10: N91.2 09/02/2017 Active Plantar fascial fibromatosis ICD-9: 728.71 ICD-10: M72.2 03/12/2017 Active Generalized abdominal pain ICD-9: 789.07 ICD-10: R10.84 08/28/2015 Active Pelvic and perineal pain ICD-9: 625.9 ICD-10: R10.2 07/16/2016 Active Anxiety disorder, unspecified ICD-9: 300.00 ICD-10: F41.9 06/07/2016 Active Mastodynia ICD-9: 611.71 ICD-10: N64.4 11/02/2015 Active Pelvic and perineal pain ICD-9: [id number] ICD-10: R10.2 11/02/2015 Active Constipation, unspecified ICD-9: 564.00 ICD-10: K59.00 08/28/2015 Active Generalized abdominal pain ICD-9: 789.00 ICD-10: R10.84 07/27/2014 Active Residual hemorrhoidal skin tags ICD-9: 455.5 ICD-10: K64.4 12/13/2014 Active Left adnexal tenderness ICD-9: 625.9 09/23/2014 Active DYSURIA ICD-9: 788.1 09/20/2014 Active ABDOMINAL PAIN ICD-9: 789.00 07/27/2014 Active Medications Medication Codes Instructions Start Date Stop Date Status Fill Instructions Protonix 40 mg tablet,delayed release RxNorm: 709787 1 Tablet(s) Oral QD for stomach 05/13/2019 07/11/2019 Active Protonix 40 mg tablet,delayed release RxNorm: 791286 1 Tablet(s) PO QD for stomach 07/28/2018 05/12/2019 Inactive Macrobid 100 mg capsule RxNorm: 852774 1 Capsule(s) PO BID 03/27/19 19 04/02/2018 Inactive Zithromax Z-Jarad 250 mg tablet RxNorm: 569394 Tablet(s) PO take as directed 02/07/2018 03/26/2018 Inactive clindamycin HCl 300 mg capsule RxNorm: 199669 1 Capsule(s) PO BID 0 09/04/2017 09/03/2017 Inactive clindamycin HCl 300 mg capsule RxNorm: 255134 1 Capsule(s) PO BID 0 09/04/2017 09/10/2017 Inactive Macrobid 100 mg capsule RxNorm: 659232 1 Capsule(s) PO BID 04/30/19 18 05/03/2017 Inactive meloxicam 15 mg tablet RxNorm: 089411 1 Tablet(s) PO QD for edi l pain 04/04/2017 05/03/2017 Inactive meloxicam 15 mg tablet RxNorm: 719517 1 Tablet(s) PO QD for edi l pain 03/12/2017 04/03/2017 Inactive Protonix 40 mg tablet,delayed release RxNorm: 849303 1 Tablet(s ) PO QD 11/08/2016 03/11/2017 Inactive Dexilant 60 mg capsule, delayed release RxNorm: 603541 1 Capsul e(s) PO QD 11/08/2016 11/08/2016 Inactive Dexilant 60 mg capsule, delayed release RxNorm: 256445 1 Capsul e(s) PO QD 09/04/2016 11/07/2016 Inactive buspirone 5 mg tablet RxNorm: 123911 1 Tablet(s) PO BID 06/07/2016 Inactive Linzess 145 mcg capsule RxNorm: 4314096 1 Capsule(s) PO QD 08/29/19 16 02/24/2016 Inactive Protonix 40 mg tablet,delayed release RxNorm: 652195 1 Tablet(s ) PO QD 08/29/2015 06/06/2016 Inactive Protonix 40 mg tablet,delayed release RxNorm: 349055 1 Tablet(s) PO QD Replaces Dexilant 12/22/2014 2015 Inactive Proctosol HC 2.5 % rectal cream RxNorm: 4782994 25 Monika gram(s) RTL BID and after each bowel movement 12/14/2014 2015 Inactive doxycycline hyclate 100 mg capsule RxNorm: 9710221 1 Cap eduard(s) PO BID take only if preg test was negative 09/24/2014 09/30/2014 Inactive metronidazole 500 mg tablet RxNorm: 762193 1 Tablet(s) PO BID 09/2409/30/2014 Inactive Protonix 40 mg tablet,delayed release RxNorm: 868822 1 Tablet(s ) PO QD 09/22/2014 09/21/2014 Inactive Protonix 40 mg tablet,delayed release RxNorm: 133765 1 Tablet(s ) PO QD 09/22/2014 09/21/2014 Inactive Protonix 40 mg tablet,delayed release RxNorm: 769641 1 Tablet(s) PO QD Replaces Dexilant 09/22/2014 12/13/2014 Inactive Dexilant 60 mg capsule, delayed release RxNorm: 827489 1 Capsul e(s) PO QD 09/21/2014 09/21/2014 Inactive Dexilant 60 mg capsule, delayed release RxNorm: 573212 1 Capsul e(s) PO QD 08/11/2014 09/20/2014 Inactive hydroxyzine HCl 25 mg tablet RxNorm: 051460 1 Tablet(s) PO Q4-6H No Start Date 07/15/2016 Inactive Protonix 40 mg tablet,delayed release RxNorm: 230654 1 Tablet(s ) PO QD No Start Date 11/07/2016 Inactive Medication Administered No Medication Administered data Immunizations No Immunization data Results Observation Observation Code Item Item Code Result Date S ervice Location V [facility] [id number] Whiff Positive 09/02/2017 Unknown V [facility] 7523276 WBC Vaginal Moderate 09/02/2017 [facility] Clue Cells >20% 09/02/2017 Unknown V PROF B 9421544 Yeast Vaginal None 09/02/2017 Unkn own V PROF SWB 4739462 SYSTEMS ANALYST DEVELOPER Swb Trich Ag Negative 09/02/2017 Un known [facility] 2346446 SYSTEMS ANALYST DEVELOPER BV Stain 10 09/02/2017 Unknow n V PROF B 0975778 SYSTEMS ANALYST DEVELOPER Interp Results indicate Bacteria l Vaginosis Syndrome. 09/02/2017 Unknown BETA-HCG QUANT SERUM 93463 Beta hCG Todd 70396 mIU/mL Unknown GC/CHLAMYDIA DNA 66785|74971 Chl trach DNA Negative 017 Unknown GC/CHLAMYDIA DNA 01178|14310 GC PROBE Negative 07/18/2016 Unknown Wet Prep 9808716 Yeast Vaginal None 07/17/2016 Unkno wn Wet Prep 5823181 Trichomonas None 07/17/2016 Unknown GC/CHLAMYDIA DNA 46338|92988 Chl trach DNA Negative 016 Unknown GC/CHLAMYDIA DNA 40350|96000 GC PROBE Negative 11/04/2015 Unknown Wet Prep 0602644 Yeast Vaginal None 11/03/2015 Unkno wn Wet Prep 1008944 Trichomonas None 11/03/2015 Unknown LIPASE 25869 LIPASE 21 IU/L 07/28/2014 Unknown GFR CALC 8057066 GFR AA >60 ML/MIN 07/28/2014 Unknown GFR CALC 0394189 GFR NON-AA >60 ML/MIN 07/28/2014 Unknown THYROID STIMULATING HORMONE 50486 TSH 1.944 uIU/ML 07/28/2014 Unknown AMYLASE 40794 AMYLASE 59 IU/L 07/28/2014 Unknown COMPLETE BLOOD COUNT 0573602 WBC 5.9 10e9/L 07/29/19 15 Unknown COMPLETE BLOOD COUNT 3997795 RBC 4.45 10e12/L 2014 Unknown COMPLETE BLOOD COUNT 6171620 HGB 13.6 g/dL 5 Unknown COMPLETE BLOOD COUNT 5306644 HCT DET 39.5 % 5 Unknown COMPLETE BLOOD COUNT 9348700 MCV 88.8 fL 5 Unknown COMPLETE BLOOD COUNT 4618840 MCH 30.6 pg 5 Unknown COMPLETE BLOOD COUNT 6428791 MCHC 34.4 g/dL 5 Unknown COMPLETE BLOOD COUNT 5294398 PLT 300 10e9/L 07/29/19 15 Unknown COMPLETE BLOOD COUNT 5815108 MPV 9.8 fL 5 Unknown COMPLETE BLOOD COUNT 9517689 MATI % 60.0 % 5 Unknown COMPLETE BLOOD COUNT 9248270 LY % 33.2 % 5 Unknown COMPLETE BLOOD COUNT 2316138 MON % 5.8 % 5 Unknown COMPLETE BLOOD COUNT 1577912 EOS % 0.7 % 5 Unknown COMPLETE BLOOD COUNT 5891235 BASO % 0.3 % 5 Unknown COMPLETE BLOOD COUNT 8901244 RDW 12.3 % 5 Unknown COMPLETE BLOOD COUNT 3859802 ABS MATI 3.54 10e9/L 015 Unknown COMPLETE BLOOD COUNT 5304587 ABS LYMPH 1.96 10e9/L 015 Unknown COMPLETE BLOOD COUNT 5686057 ABS MONO 0.34 10e9/L 015 Unknown COMPLETE BLOOD COUNT 5059313 ABS EOS 0.04 10e9/L 015 Unknown COMPLETE BLOOD COUNT 8728636 ABS BASO 0.02 10e9/L 015 Unknown COMPLETE BLOOD COUNT 0570527 RDW-SD 39.0 fL 5 Unknown COMPREHENSIVE METABOLIC 29166 AST 24 U/L 2014 Unknown COMPREHENSIVE METABOLIC 75800 ALT 27 IU/L 2014 Unknown COMPREHENSIVE METABOLIC 78111 BUN 11 MG/DL 2014 Unknown COMPREHENSIVE METABOLIC 20192 ALBUMIN 4.1 GM/DL 2014 Unknown COMPREHENSIVE METABOLIC 99460 CHLORIDE 101 MMOL/L 07/28 Unknown COMPREHENSIVE METABOLIC 76948 BILI TOT 0.4 MG/DL 2014 Unknown COMPREHENSIVE METABOLIC 13588 ALK PHOS 68 U/L 2014 Unknown COMPREHENSIVE METABOLIC 37360 SODIUM 138 MMOL/L 07/28 Unknown COMPREHENSIVE METABOLIC 76988 CREATININE 0.68 MG/DL 07/12 Unknown COMPREHENSIVE METABOLIC 65512 CALCIUM 9.4 MG/DL 2014 Unknown COMPREHENSIVE METABOLIC 73683 POTASSIUM 4.6 MMOL/L 07/28 Unknown COMPREHENSIVE METABOLIC 02774 PROT TOT 6.8 GM/DL 2014 Unknown COMPREHENSIVE METABOLIC 12808 Glucose 82 MG/DL 2014 Unknown COMPREHENSIVE METABOLIC 83073 BICARB 30 MMOL/L 2014 Unknown COMPREHENSIVE METABOLIC 36309 ANION GAP 7 MEQ/L 2014 Unknown Procedures Procedure Codes Date V PROF SWB CPT-4: 6405605 09/02/2017 CULTURE OTHR SPECIMN AEROBIC CPT-4: 08622 09/02/2017 CHORIONIC GONADOTROPIN TEST CPT-4: 89700 09/02/2017 URINALYSIS NONAUTO W/O SCOPE CPT-4: 68987 11/08/2016 URINALYSIS NONAUTO W/O SCOPE CPT-4: 73881 07/16/2016 URINE TEST CPT-4: 58697 07/16/2016 CULTURE OTHR SPECIMN AEROBIC CPT-4: 65545 07/16/2016 GC/CHLAMYDIA DNA (BD-ProbeTec) CPT-4: 01266|39642 7 C WET ND CPT-4: 15067 07/16/2016 GC/CHLAMYDIA DNA (BD-ProbeTec) CPT-4: 69650|81259 6 C WET ND CPT-4: 03908 11/03/2015 URINE CULTURE/ COLONY COUNT CPT-4: 04196 11/03/2015 URINALYSIS NONAUTO W/O SCOPE CPT-4: 27648 06/09/2015 URINE TEST CPT-4: 81493 06/09/2015 URINE CULTURE/ COLONY COUNT CPT-4: 70392 04/06/2015 URINALYSIS NONAUTO W/O SCOPE CPT-4: 96210 04/06/2015 URINE CULTURE/ COLONY COUNT CPT-4: 81335 09/21/2014 URINALYSIS NONAUTO W/O SCOPE CPT-4: 74375 09/21/2014 ROUTINE VENIPUNCTURE CPT-4: 54327 07/28/2014 ASSAY THYROID STIM HORMONE CPT-4: 94115 07/28/2014 COMPREHEN METABOLIC PANEL CPT-4: 93758 07/28/2014 COMPLETE CBC W/AUTO DIFF WBC CPT-4: 22865 07/28/2014 ASSAY OF AMYLASE CPT-4: 62710 07/28/2014 ASSAY OF LIPASE CPT-4: 70219 07/28/2014 Vital Signs Date Vital 05/13/2019 Blood Pressure 1: 121/69 Code: 8480-6 Heart Rate 1: 66 bpm Respiratory Rate: 16 bpm SpO2: 97% Temperature: 36.6 (C) / 97.9 (F) We ight: 129 lbs 03/27/2018 Blood Pressure 1: 116/70 Code: 8480-6 Heart Rate 1: 66 bpm Temperature: 36.8 (C) / 98.3 (F) 02/07/2018 Blood Pressure 1: 90/60 Code: 8480-6 Heart Rate 1: 82 bpm Respiratory Rate: 18 bpm SpO2: 97% Temperature: 36.8 (C) / 98.2 (F) Weight: 133 lbs 09/02/2017 Blood Pressure 1: 94/60 Code: 8480-6 Heart Rate 1: 72 bpm Respiratory Rate: 20 bpm Temperature: 36.8 (C) / 98.3 (F) Weight: 123 lbs 04/29/2017 Blood Pressure 1: 102/67 Code: 8480-6 Heart Rate 1: 73 bpm SpO2: 98% Temperature: 36.1 (C) / 96.9 (F) Weight: 128 lbs 04/04/2017 Blood Pressure 1: 114/70 Code: 8480-6 BMI: 23.0 Code: 94311-3 Heart Rate 1: 72 bpm Height: 5'2" Respiratory Rate: 20 bpm Temperature: 36 .6 (C) / 97.8 (F) Weight: 126 lbs 03/12/2017 Blood Pressure 1: 114/78 Code: 8480-6 BMI: 23.6 Code: 08078-1 Heart Rate 1: 72 bpm Height: 5'2" Respiratory Rate: 20 bpm Temperature: 37 .0 (C) / 98.6 (F) Weight: 129 lbs 11/08/2016 Blood Pressure 1: 122/76 Code: 8480-6 BMI: 22.5 Code: 56564-1 Heart Rate 1: 76 bpm Height: 5'2" Respiratory Rate: 18 bpm SpO2: 97% Tempera ture: 36.3 (C) / 97.3 (F) Weight: 123 lbs 07/16/2016 Blood Pressure 1: 92/60 Code: 8480-6 BMI: 22.1 C ode: 38264-1 Heart Rate 1: 68 bpm Height: 5'2" Respiratory Rate: 20 bpm Temperature: 36 .8 (C) / 98.2 (F) Weight: 121 lbs 06/07/2016 Blood Pressure 1: 122/78 Code: 8480-6 Heart Rate 1: 80 bpm Respiratory Rate: 26 bpm SpO2: 96% Temperature: 36.6 (C) / 97.9 (F) We ight: 125 lbs 11/03/2015 Blood Pressure 1: 106/64 Code: 8480-6 BMI: 21.8 Code: 05042-6 Heart Rate 1: 76 bpm Height: 5'2" Respiratory Rate: 24 bpm SpO2: 96% Tempera ture: 36.2 (C) / 97.2 (F) Weight: 119 lbs 08/29/2015 Blood Pressure 1: 110/62 Code: 8480-6 BMI: 21.9 Code: 72872-5 Heart Rate 1: 70 bpm Height: 5'2" Respiratory Rate: 18 bpm SpO2: 98% Tempera ture: 36.8 (C) / 98.2 (F) Weight: 120 lbs 08/11/2015 Blood Pressure 1: 11868 Code: 8480-6 BMI: 21.4 Code: 00752-2 Heart Rate 1: 68 bpm Height: 5'2" Respiratory Rate: 22 bpm SpO2: 98% Tempera ture: 37.0 (C) / 98.6 (F) Weight: 117 lbs 06/09/2015 Blood Pressure 1: 11268 Code: 8480-6 BMI: 21.6 Code: 04067-1 Heart Rate 1: 66 bpm Height: 5'2" Respiratory Rate: 20 bpm SpO2: 98% Tempera ture: 36.3 (C) / 97.3 (F) Weight: 118 lbs 02/02/2015 Blood Pressure 1: 12078 Code: 8480-6 BMI: 22.5 Code: 77176-7 Heart Rate 1: 76 bpm Height: 5' Respiratory Rate: 20 bpm Temperature: 37 .0 (C) / 98.6 (F) Weight: 117 lbs 12/22/2014 Blood Pressure 1: 92 Code: 8480-6 BMI: 21.5 C ode: 85568-0 Heart Rate 1: 80 bpm Height: 5' Respiratory Rate: 20 bpm Temperature: 36 .6 (C) / 97.8 (F) Weight: 112 lbs 12/14/2014 Blood Pressure 1: 96 Code: 8480-6 BMI: 21.5 C ode: 44267-4 Heart Rate 1: 80 bpm Height: 5' Respiratory Rate: 20 bpm Temperature: 36 .9 (C) / 98.5 (F) Weight: 112 lbs 09/24/2014 Blood Pressure 1: 11260 Code: 8480-6 BMI: 21.5 Code: 55742-9 Heart Rate 1: 72 bpm Height: 5' Respiratory Rate: 20 bpm Temperature: 37 .0 (C) / 98.6 (F) Weight: 112 lbs 08/11/2014 Blood Pressure 1: 9660 Code: 8480-6 BMI: 21.7 C ode: 13555-1 Heart Rate 1: 64 bpm Height: 5' Respiratory Rate: 20 bpm Temperature: 36 .9 (C) / 98.4 (F) Weight: 113 lbs 07/28/2014 Blood Pressure 1: 116/78 Code: 8480-6 BMI: 21.5 Code: 10558-2 Heart Rate 1: 80 bpm Height: 5' Respiratory Rate: 20 bpm Temperature: 36 .8 (C) / 98.2 (F) Weight: 112 lbs Functional Status No Functional Status data Reason For Visit Reason For Visit Effective Dates Notes abdominal pain 05/13/2019 abdominal pain 03/27/2018 sore throat 02/07/2018 bilateral ears 09/02/2017 Patient has had posi tive urine test. She states LMP 06/08/17 follow up 04/04/2017 2wk fwup heel pain 03/12/2017 abdominal pain 11/08/2016 Patient has had recu rrent, intermittent abdominal pain to umbilical- patient was seen Last Saturday at a walk in clinic and was prescribed Macrobid and Diflucan. Patient states pelvic pain has improved, but still has chronic pain after ingesting any kind of food. Patient has had a chronic abdominal pain in the past and is still recurrent. Patient had stopped taking Dexilant and has been noncompliant. abdominal pain 07/16/2016 follow up 06/07/2016 Discuss recent labs from 05/30/16 breast complaint 11/03/2015 follow up 08/29/2015 Patient has been j luis rajeev diet with High Fiber ad has appt with Specialist September 28 for GI abdominal pain 08/11/2015 gas and bloating 06/09/2015 pelvic pain 04/06/2015 breast complaint 02/02/2015 follow up 12/22/2014 pain 12/14/2014 abdominal pain 09/24/2014 painful urination 09/21/2014 follow up 08/11/2014 ~generic 07/28/2014 [facility] Encounters Encounter Performer Location Codes Date ([id number]) OFFICE/OUTPATIENT VISIT EST Diagnosis: Ventral hernia[ICD10: K43.9] Diagnosis: Epigastric pain[ICD10: R10.13] [facility] CPT-4: 50796 05/13/2019 ([id number]) OFFICE/OUTPATIENT VISIT EST Diagnosis: Left upper quadrant pain[ICD10: R10.12] Diagnosis: Left lower quadrant pain[ICD10: R10.32] Diagnosis: Slow transit constipation[ICD10: K59.01] [facility] CPT-4: 63427 03/27/2018 ([id number]) OFFICE/OUTPATIENT VISIT EST Diagnosis: Acute upper respiratory infection, unspecified[ICD10: J06.9] Altagracia [facility] CPT-4: 82613 02/07/2018 ([id number]) OFFICE/OUTPATIENT VISIT EST Diagnosis: Acute vaginitis[ICD10: N76.0] Diagnosis: Amenorrhea, unspecified[ICD10: N91.2] [facility]ju [facility] CPT-4: 88887 09/02/2017 ([id number]) OFFICE/OUTPATIENT VISIT EST Diagnosis: Left lower quadrant pain[ICD10: R10.32] Altagracia BRADLEY [facility] CPT-4: 41907 04/29/2017 ([id number]) OFFICE/OUTPATIENT VISIT EST Diagnosis: Plantar fascial fibromatosis[ICD10: M72.2] Juju BRADLEY [facility] CPT-4: 46974 04/04/2017 ([id number]) OFFICE/OUTPATIENT VISIT EST Diagnosis: Plantar fascial fibromatosis[ICD10: M72.2] Juju BRADLEY [facility] CPT-4: 55073 03/12/2017 OFFICE/OUTPATIENT VISIT EST Diagnosis: Generalized abdominal pain[ICD10: R10.84] Altagracia BRADLEY [facility] CPT-4: 32931 11/08/2016 ([id number]) OFFICE/OUTPATIENT VISIT EST Diagnosis: Pelvic and perineal pain[ICD10: R10.2] Diagnosis: Acute vaginitis[ICD10: N76.0] Juju [facility]ADLEY [facility] CPT-4: 39725 07/16/2016 ([id number]) OFFICE/OUTPATIENT VISIT EST Diagnosis: Anxiety disorder, unspecified[ICD10: F41.9] Neisha Sawant [facility] CPT-4: 26626 06/07/2016 ([id number]) OFFICE/OUTPATIENT VISIT EST Diagnosis: Pelvic and perineal pain[ICD10: R10.2] Diagnosis: Acute vaginitis[ICD10: N76.0] Diagnosis: Mastodynia[ICD10: N64.4] Neisha Sawant [facility] CPT-[facility]: 91174 11/03/2015 ([id number]) OFFICE/OUTPATIENT VISIT EST Diagnosis: Generalized abdominal pain[ICD10: R10.84] Diagnosis: Constipation, unspecified[ICD10: K59.00] Neisha Sawant SHAI MANSOOR [facility]. [facility]: 58720 08/29/2015 ([id number]) OFFICE/OUTPATIENT VISIT EST Diagnosis: Generalized abdominal pain[ICD10: R10.84] Diagnosis: Constipation, unspecified[ICD10: K59.00] Neisha GIBBONS ANABEL [facility] CPT-[facility]: 06852 08/11/2015 ([id number]) OFFICE/OUTPATIENT VISIT EST Diagnosis: Generalized abdominal pain[ICD10: R10.84] Diagnosis: Constipation, unspecified[ICD10: K59.00] Neisha [facility]: 85661 06/09/2015 ([id number]) OFFICE/OUTPATIENT VISIT EST Diagnosis: Pelvic and perineal pain[ICD10: R10.2] Juju LITTLE MadelinBerto [employer] [facility] CPT-4: 21315 04/06/2015 OFFICE/OUTPATIENT VISIT EST Diagnosis: Mastodynia[ICD10: N64.4] Kaila CARRANZA [facility] CPT-4: 34310 02/02/2015 ([id number]) OFFICE/OUTPATIENT VISIT EST Diagnosis: Generalized abdominal pain[ICD10: R10.84] Diagnosis: Constipation, unspecified[ICD10: K59.00] Juju TEJEDA MadelinBerto [facility] [employer] [facility] CPT-4: 86342 12/22/2014 OFFICE/OUTPATIENT VISIT EST Diagnosis: Residual hemorrhoidal skin tags[ICD10: K64.4] Kaila TEJEDA MadelinBerto [facility] [employer] [facility] CPT-4: 46448 12/14/2014 OFFICE/OUTPATIENT VISIT EST Diagnosis: Left adnexal tenderness[ICD9: 625.9] Vianey Brown JEREMIAH [facility] CPT-4: 07929 09/24/2014 ([id number]) OFFICE/OUTPATIENT VISIT EST Diagnosis: DYSURIA[ICD9: 788.1] Juju CUEVAS CPT-4: 79432 09/21/2014 ([id number]) OFFICE/OUTPATIENT VISIT EST Diagnosis: ABDOMINAL PAIN[ICD9: 789.00] [facility] CPT-4: 38727 08/11/2014 ([id number]) OFFICE/OUTPATIENT VISIT NEW Diagnosis: ABDOMINAL PAIN[ICD9: 789.00] [facility] CPT-4: 17778 07/28/2014 Plan of Care Planned Activity Notes Codes Status Date Visit Diagnosis Plan: Ventral hernia Discussion: Refer ral to surgery since is getting strangulated at times and causing discomfort--discussed with Dr. Pike ICD-9 : 553.20 ICD-10 : K43.9 05/13/2019 Patient Education: Protonix- Optimize[employer] Coupon [id number] [email or web address] Completed 05/13/2019 Care Plan: Referral Order SNOMED-CT : 30 [id number] Pending 05/13/2019 Visit Diagnosis Plan: Slow transit constipation Discus netta: Increase stool softener to BID ICD-9 : 564.01 ICD-10 : K59.01 03/27/2018 Visit Diagnosis Plan: Left upper quadrant pain Discuss ion: Cover with macrobid for etiology To ER this weekend if worsens ICD-9 : 789.02 ICD-10 : R10.12 03/27/2018 Appointment: Juju Bradley WPtel: [phone] [facility] WORK IN 03/27/2018 Visit Diagnosis Plan: Acute upper respiratory infectio n, unspecified Discussion: zpack prescribed for symptom management. instructed to go to urgent care over the weekend with worsening symptoms or go to birthing center if fever develops over the weekend. increase fluid intake and rest often. no work today. may return to work tomorrow. ICD-9 : 465.9 ICD-10 : J06.9 02/07/2018 Appointment: Altagracia Velazquez [address] [place] [address] ACUTE ILLNESS 02/07/2018 Visit Diagnosis Plan: Acute vaginitis Discussion: Vagi nal cultures done ICD-9 : 623.5 ICD-10 : N76.0 09/02/2017 Visit Diagnosis Plan: Amenorrhea, unspecified Discussi on: Check quantitative BHCG May need pelvic US Will await above results Discussed need to see PACKING MACHINE TENDER LYLE ICD-9 : 626.0 ICD-10 : N91.2 09/02/2017 Appointment: Juju Bradley WPtel: [address] [place] [address] ACUTE ILLNESS 09/02/2017 Patient Education: Patient Medication Summary Completed 09/02/2017 Visit Diagnosis Plan: Left lower quadrant pain Discuss ion: 5 more days of macrobid bid. instructed patient to rtc on if not any better and will perform abdominal studies. avoid greasy/fatty foods. ICD-9 : 789.04 ICD-10 : R10.32 04/29/2017 Appointment: Altagracia Velazquez [address] ACUTE ILLNESS 04/29/2017 Patient Education: Patient Medication Summary Completed 04/29/2017 Visit Diagnosis Plan: Plantar fascial fibromatosis Dis cussion: Improving so will continue with no work boots for 2more weeks then return to work boots with heal arch inserts Will continue with meloxicam for at least 1 more month If returns or worsens will see podiatry ICD-9 : 728.71 ICD-10 : M72.2 04/04/2017 Appointment: Juju Bradley WPtel: [address] [place], [place] [phone] FOLLOW UP 04/04/2017 Patient Education: Patient Medication Summary Completed 04/04/2017 Appointment: Juju Bradley WPtel: [address] [place], [place] [phone] US RESCHEDULED 03/25/2017 Visit Diagnosis Plan: Plantar fascial fibromatosis Dis cussion: Heal arch inserts Ice and stretch Mobic Recheck 2 weeks to see if needs injections ICD-9 : 728.71 ICD-10 : M72.2 03/12/2017 Appointment: Juju Bradley WPtel: [address] [place] [address] US patient called 03/11/17 to confirm ACUTE ILLNESS 03/12/2017 Patient Education: Patient Medication Summary Completed 03/12/2017 Appointment: Altagracia Velazquez [address] [place] [address] CANCELED 01/11/2017 Visit Diagnosis Plan: Generalized abdominal pain Discu ssion: Fill prescription of dexilant and take daily for abdominal pain. will notify her of results of urine culture on saturday and order referral for urology if dexilant not working and culture normal. Follow Up: As needed ICD-9 : 789.07 ICD-10 : R10.84 11/08/2016 Appointment: Altagracia Velazquez [address] [place] [address] ACUTE ILLNESS 11/08/2016 Patient Education: Patient Medication Summary Completed 11/08/2016 Visit Diagnosis Plan: Pelvic and perineal pain Discuss ion: test negative Vaginal cultures done May need Pelvic US To ER if worsens ICD-9 : 625.9 ICD-10 : R10.2 07/16/2016 Appointment: Juju Bradley WPtel: [address] [place] [address] ACUTE ILLNESS 07/16/2016 Patient Education: Patient Medication Summary Completed 07/16/2016 Visit Diagnosis Plan: Anxiety disorder, unspecified Di scussion: Start buspar as above Start decreasing frequency of hydroxyzine Discussed non pharm options for anxiety relief as well Call in 2 weeks for update and will increase dose if needed ICD-9 : 300.00 ICD-10 : F41.9 06/07/2016 Appointment: Neisha Sawant [address] [place], [place] [email or web address] 06/06 confirmed~sl FOLLOW UP 06/07/2016 Patient Education: Patient Medication Summary Completed 06/07/2016 Visit Plan: Urine dip wnl - culture pend ing G/C, ASHLEIGH and wet prep collected Breast US ordered Will call with results when available 11/03/2015 Appointment: Jose Sawanty [address] [place], [place] [id number] 11/01 confirmed~sl ACUTE ILLNESS 11/03/2015 Patient Education: Patient Medication Summary Completed 11/03/2015 Referral: Andrade Holm WPtel: [address] [id number] Referral Appointment Confirmed 10/12/2015 Visit Plan: Referral to Dr Holley Keep appt with GI Restart protonix and linzess 08/29/2015 Appointment: Jese Neisha Hung[address] [place], [place] [id number] ACUTE ILLNESS 08/29/2015 Patient Education: Patient Medication Summary Completed 08/29/2015 Care Plan: Referral Order SNOMED-CT : 30 [id number] Pending 08/29/2015 Visit Plan: Ok with referring onto GI as patient wishes Discussed food diary, proper fiber and water intake, stool softeners when needed, etc Stressed importance of only taking meds and supplements that are safe during since she is hoping to conceive soon 08/11/2015 Appointment: Neisha Sawant [address] [place], [place] [id number] ACUTE ILLNESS 08/11/2015 Patient Education: Patient Medication Summary Completed 08/11/2015 Care Plan: Referral Order SNOMED-CT : 30 [id number] Pending 08/11/2015 Visit Plan: Office dip and HCG negative Proceed with xray today If negative, likely needs G/S consult for EGD/Ciales 06/09/2015 Appointment: Neisha Sawant [address] [place], [place] [id number] ACUTE ILLNESS 06/09/2015 Patient Education: Patient Medication Summary Completed 06/09/2015 Appointment: Juju Bradley WPtel: [address] [place] [address] 04/06/2015 Patient Education: Patient Medication Summary Completed 04/06/2015 Visit Plan: Recommended starting daily V itamin E supplement 400 U Magnesium Citrate 200 mg PO daily at least 2 weeks prior to onset of menstruation. Avoid caffeinated beverages and increase daily water intake Follow-up in one month if no improvement, will repeat labs. 02/02/2015 Appointment: Kaila Smith WPtel: [address] [place] [address] 02/01 confirmed ~sl ACUTE ILLNESS 02/02/2015 Patient Education: Patient Medication Summary Completed 02/02/2015 Appointment: Kaila Smith WPtel: [address] [place] [address] ACUTE ILLNESS 01/27/2015 Visit Plan: Restart protonix Finish proc tosol and hemorrhoidal suppository Add back protonix Add Linzess 145mcg daily Call in 1week on how doing 12/22/2014 Appointment: Juju Bradley WPtel: [address] [place] [address] 12/21 #s no work ~sl 12/22 first # not working tried 2nd laz l # vm cn FOLLOW UP 12/22/2014 Patient Education: Patient Medication Summary Completed 12/22/2014 Visit Plan: Proctosol HC rectal cream to be used rectally Stiz baths Stool softeners High fiber diet 12/14/2014 Appointment: Kaila Smith WPtel: [address] [place] [address] ACUTE ILLNESS 12/14/2014 Patient Education: Patient Medication Summary Completed 12/14/2014 Care Plan: US EXAM PELVIC COMPLETE LOINC : 72173-6 Ordered 09/27/2014 Visit Plan: Serum hCG (if positive, then Beta hCG) and CBC at [facility] Pelvic U/S at [facility] ERx for Doxy and Metronidazole only if test is negative for presumptive PID treatment 09/24/2014 Appointment: Vianey Brown WPtel: [address] [place] [address] ACUTE ILLNESS 09/24/2014 Patient Education: Patient Medication Summary Completed 09/24/2014 Appointment: Juju Bradley WPtel: [address] [place] [address] UA 09/21/2014 Patient Education: Patient Medication Summary Completed 09/21/2014 Appointment: Juju Bradley WPtel: [address] [facility] US feels better -mf FOLLOW UP 08/16/2014 Visit Plan: Dexilant 60mg daily for 4 mo re weeks Patient will call in 4weeks and if still doing okay with pain will go to low dose omprazole for 1month then reduce to pepcid for 1month then stop meds and see how does 08/11/2014 Appointment: Juju Bradley WPtel: [address] [facility] 08/10 vm not set up cn/called additional # left vm cb... con firmed- mf FOLLOW UP 08/11/2014 Patient Education: Patient Medication Summary Completed 08/11/2014 Visit Plan: Had parts interpreter today Check CBC, CMP, Amylase, Lipase, TSH Start Restora once daily Start Dexilant once daily Return in 2weeks If symptoms not improving will consider scan vs scopes 07/28/2014 Appointment: Juju Bradley WPtel: [address] [facility] 07/27 vm not set up cn tried 2nd cell nu mber Left message to call cn... confirmed -mf NEW PATIENT 07/28/2014 Patient Education: Patient Medication Summary Completed 07/28/2014 Referral: Manuel Pike WPtel: [address] [place], [place] [phone] [place] Referral Appointment Requested Referral: Rangel Holley WPtel: [address] [id number] [place] Referral Appointment Requested Referral: Ortiz Rudd WPtel: [address] [facility] [place] Referral Appointment Requested Instructions Comment . Urine dip wnl - culture pending G/C, ASHLEIGH and wet prep collected Breast US ordered Will call with results when available . Referral to Dr Holley Keep appt with GI Restart protonix and linzess . Ok with referring onto GI as patient w barbara Discussed food diary, proper fiber and water intake, stool softeners when needed, etc Stressed importance of only taking meds and supplements that are safe during since she is hoping to conceive soon . Office dip and HCG negative Proceed with xray today If negative, likely needs G/S consult for EGD/Ciales . Recommended starting daily Vitamin E s upplement 400 U Magnesium Citrate 200 mg PO daily at least 2 weeks prior to onset of menstruation. Avoid caffeinated beverages and increase daily water intake Follow-up in one month if no improvement, will repeat labs. . Restart protonix Finish proctosol and hemorrhoidal suppository Add back protonix Add Linzess 145mcg daily Call in 1week on how doing Patient speaks very little Icelandic, is a ccompanied by parts interpreter. Indicates understanding of Instructions. Apply rectal cream bid and after each bowel movement Warm tub soaks for 15 min 2 - 3 times daily Avoid constipation - Recommended stool softeners daily Drink plenty of water . Proctosol HC rectal cream to be used r ectally Stiz baths Stool softeners High fiber diet . Serum hCG (if positive, then Beta hCG) and CBC at [facility] Pelvic U/S at [facility] ERx for Doxy and Metronidazole only if test is negative for presumptive PID treatment . Dexilant 60mg daily for 4 more weeks Patient will call in 4weeks and if still doing okay with pain will go to low dose omprazole for 1month then reduce to pepcid for 1month then stop meds and see how does . Had parts interpreter today Check CBC, CMP, Amylase, Lipase, TSH Start Restora once daily Start Dexilant once daily Return in 2weeks If symptoms not improving will consider scan vs scopes Medical Equipment No Medical Equipment data Health Concerns Section Health Concerns data not found Goals Section Goals data not found Interventions Section Interventions data not found Health Status Evaluations/Outcomes Section Health Status Evaluations/Outcomes data not found Advance Directives No Advance Directive data
--- OUTSIDE RECORDS SUMMARY | 2019-05-20 07:30 | XMS REPORT ---
Author Author Deja Baldwin Doctor Organization [facility] Address Unknown Phone Unavailable Care Team Providers Care Electric Utility Lineworker Name Role Phone Migration, Doctor Unavailable Unavailable PROBLEMS Type Condition ICD9-CM Code SWE30-NQ Code Onset Dates Condition S tatus SNOMED Code Problem Hyperventilation syndrome F45.8 Acti ve 095327772 Problem Anxiety disorder, unspecified F41.9 Active 44730321 Problem Abdominal pain, left lower quadrant 789.04 Active 061052674 Problem Costochondritis 733.6 Active 6410 9004 Problem Acute pharyngitis 462 Active 36 3854542 ALLERGIES No Information ENCOUNTERS Encounter Location Date Diagnosis [facility] [address] [address] Oct, Acute cystitis without hemat uria N30.00 [facility] [address] [address] May, [facility] [address] [address] May, Anxiety disorder, unspecifie d F41.9 and Hyperventilation syndrome F45.8 [facility] [address] [address] Aug, Abdominal discomfort R10.9 [facility] [address] [address] May, [facility] [address] [address] May, [facility] [address] [place] [id number] [place] [phone] Dec, [facility] [address] [address] Dec, [facility] [address] [id number] [address] [place] [phone] Dec, [facility] [address] [id number] [address] [place] [phone] Dec, [facility] [address] [id number] [address] [place] [phone] Dec, [facility] [address] [id number] [address] [place] [phone] Sep, [facility] [address] [id number] [address] [place] [phone] Feb, [facility] [address] [id number] [address] [place] [phone] Feb, [facility] [address] [id number] [address] [place] [phone] Feb, [facility] [address] [id number] [address] [place] [phone] Apr, IMMUNIZATIONS No Known Immunizations SOCIAL HISTORY Never Assessed REASON FOR VISIT EMR-[facility] [place] PLAN OF CARE VITAL SIGNS MEDICATIONS Medication Instructions Dosage Frequency Start Date End Date Duration S tatus Azithromycin 250 mg 2 Tablet by Oral rou te on day 1 then take 1 daily for 4 days Dec, Active Bactrim DS 800-160 mg 1 tablet by Oral route 2 times p er day for 5 day(s) Dec, Active RESULTS No Results PROCEDURES No Known procedures INSTRUCTIONS MEDICATIONS ADMINISTERED No Known Medications
--- OUTSIDE RECORDS SUMMARY | 2019-05-20 07:30 | XMS REPORT ---
Author Author [employer]. Organization [employer] Address [address] [address] Care Team Providers Care Edge Beader Name Role Phone ILEANA BRADLEY Unavailable MADMILTON Vuong Unavailable Unavailable ERNIE GALLOWAY Unavailable ERNIE GALLOWAY Unavailable ILEANA BRADLEY PCP Migration, Doctor Unavailable Unavailable Ileana Bradley Unavailable Unavailable Migration, Doctor Unavailable Unavailable Ileana Bradley Unavailable Unavailable Unavailable Unavailable Allergies Normalized Allergy Reported Date of Reaction(s) Care Provider Facility Allergy Type classification allergen Allergy Onset DA (8 Unclassified No Known Drug 05-19-2007 - no information ERNIE GALLOWAY Not Available sources.) Allergies (56362) Medications Medication Ingredient Drug Dose Dates Status Sig Sig Care Class(es) (Normalized) (Original) Provid er no Acetaminoph Opioid 03-13-19 Complete take 1 Acetaminophe Michae information en / Agonist 19 d tablet by n/Hydrocodon l S (1 source.) HYDROcodone mouth every e Bitart Fenech four hours (Hydrocodone (no as needed /Acetaminoph phone) for pain en 5/325MG Tablet) 1 Tab Tab 1 Tab ORAL Every 4HRS as needed for Pain-Moderat e 50 Tab 03/13/18 no Benzocaine Standardize 03-13-19 Complete no Benzocain e/M Michae information / Menthol d Chemical 19 d information entho l 56 Ml l S (1 source.) Allergen Aerosol 56 Fenech Ml TOPICAL (no As Directed phone) as needed for Pain- See Instructions 1 Milliliter EXTERNAL USE ONLY 03/13/18 ferrous ferrous no 325 mg 03-13-19 Complete take 1 Ferrous Michae sulfate 325 sulfate information 19 d tablet by Sulfate 325 l S mg oral mouth once Mg Tablet Fenech tablet (1 daily 325 Mg ORAL (no source.) Daily 30 Tab phone) 03/13/18 ibuprofen Ibuprofen Nonsteroida 600 mg 03-13-19 Complete take 1 Ibuprofen Michae 600 mg oral l 19 d tablet by (Ibu) 600 Mg l S tablet (1 Anti-inflam mouth every Tablet 600 Fenech source.) matory Drug six hours Mg ORAL (no Every 6 phone) Hours 80 Tab 03/13/18 no Pnv With no 03-13-19 Complete take 1 Pnv With Michae information Ca,No.72/Ir information 19 d tablet by Ca,N o.72/Iro l S (1 source.) on/Fa (Pnv mouth once n/Fa (Pnv Fenech daily, then (no Plus take 1 Plus phone) Multivit tablet by Multivit Tab) 1 Each mouth Tab) 1 Each Tablet Tablet 1 Ea ORAL Daily@0700 60 Tab 03/13/18 Problems Active Problems Problem Normalized Date of Normalized Normalized Provider Fac ility Classification Problem(s) Problem Problem Problem Sta tus Onset/Resoluti Duration on Diabetes or Gestational Episodic Active KORY FENECH Not Available abnormal diabetes , DO (14945) glucose mellitus in tolerance , complicating diet ; controlled childbirth; or the puerperium (4 sources.) Other Single live Episodic Active KORY FENECH Not A vailable and , DO (72113) delivery including normal (4 sources.) Abdominal Ventral hernia 05-13-2019 - Episodic Active no name Ileana Don hernia (1 without [employer] source.) obstruction or (26494) gangrene Past or Other Problems Problem Normalized Date of Normalized Normalized Provider Fac ility Classification Problem(s) Problem Problem Problem Sta tus Onset/Resoluti Duration on Unclassified 17 weeks no information no information no name no information (2 sources.) gestation of Residual 39 weeks no information no information KORY FENECH Not Available codes; gestation of , DO (00975) unclassified (4 sources.) Unclassified Encounter for no information no information no nam e no information (2 sources.) other specified screening Procedures Procedure Normalized Procedure Procedure Result Performer Facility Date DELIVERY OF PRODUCTS no information no name (no phone) Not A vailable (92936) OF CONCEPTION, EXTE Immunizations Normalized Immunization Date Notes Care Provider Facili ty Immunization NEGATED: Highlighted 03-13-2018 no information ILEANA BELL MARCO ANTONIO [place] row [place] not [address] [facility] occurred! (10196) influenza, injectable,quadrival ent, preservative free, pediatric NEGATED: Highlighted 03-13-2018 no information ILEANA BELL MARCO ANTONIO [place] [address] [facility] occurred! (59356) measles, mumps and rubella virus vaccine Results Test Name Value Interpretation Reference Range Date Time Fa cility (Normalized) (Normalized) (Medline Reference) venous blood hemoglobin measurement (mass/volume) on 2018-03-14 Hemoglobin (Bld) 11.7 g/dL (no code) 12.1 - 17.2 g/dL Asc [facility] Via [Mass/Vol] [facility] ([id number]) blood neutrophils automated count (number/volume) on 2018-03-14 Neutrophils 9.8 10*3/uL (H) 1.7 - 7 10*3/uL [place] [facility] (Bld) [#/Vol] [facility] (61[address]) blood monocytes/100 leukocytes on 2018-03-14 Monocytes/100 7 % (no code) 2 - 8 % [place] [facility] WBC (Bld) [facility] (25391) blood monocytes automated count (number/volume) on 2018-03-14 Monocytes (Bld) 0.8 10*3/uL (no code) 0.3 - 0.9 [place] [facility] [#/Vol] 10*3/uL [facility] (908[address]) blood lymphocytes automated count (number/volume) on 2018-03-14 Lymphocytes 1.6 10*3/uL (no code) 0.9 - 2.9 [place] [facility] (Bld) [#/Vol] 10*3/uL [facility] (506[address]) blood leukocytes automated count (number/volume) on 2018-03-14 WBC (Bld) 12.3 10*3/uL (H) 3.5 - 10.5 [place] [facility] [#/Vol] 10*3/uL [facility] (83[address]) blood hematocrit (volume fraction) on 2018-03-14 Hematocrit (Bld) 35 % (no code) 36.1 - 50.3 % Asc[facility] Via [Volume [facility] fraction] (52805) blood erythrocytes automated count (number/volume) on 2018-03-14 RBC (Bld) 3.83 10*6/uL (L) 4.2 - 6.1 [place] [facility] [#/Vol] 10*6/uL [facility] (72761) automated erythrocyte mean corpuscular volume on 2018-03-14 MCV (RBC) 90 fL (no code) 80 - 100 fL [place] [facility] [Entitic vol] [facility] (613[address]) automated erythrocyte mean corpuscular hemoglobin concentration measurement (mass/volume) on 2018-03-14 MCHC (RBC) 34 g/dL (no code) 32 - 36 g/dL [place] [facility] [Mass/Vol] [facility] (47444) automated erythrocyte mean corpuscular hemoglobin (mass per erythrocyte) on 2018-03-14 MCH (RBC) 31 pg (no code) 27 - 31 pg [place] [facility] [Entitic mass] [facility] (62[address]) automated erythrocyte distribution width ratio on 2018-03-14 Erythrocyte 13.3 % (no code) 11.6 - 14.6 % [place] [facility] distribution [facility] width (RBC) (82726) [Ratio] automated eosinophil count on 2018-03-14 Eosinophils 0.0 10*3/uL (no code) 0.05 - 0.5 [place] [facility] (Bld) [#/Vol] 10*3/uL [facility] (83142) automated blood platelet mean volume measurement on 2018-03-14 Platelet mean 9.4 fL (no code) 7.2 - 11.7 fL [place] [facility] volume (Bld) [facility] [Entitic vol] (89760) automated blood platelet count (count/volume) on 2018-03-14 Platelets (Bld) 319 10*3/uL (no code) 150 - 450 [place] [facility] [#/Vol] 10*3/uL [facility] (94167) automated blood neutrophils/100 leukocytes on 2018-03-14 Neutrophils/100 80 % (H) 40 - 60 % [place] [facility] WBC (Bld) [facility] (965[address]) automated blood lymphocytes/100 leukocytes on 2018-03-14 Lymphocytes/100 13 % (no code) 20 - 40 % [place] [facility] WBC (Bld) [facility] (32[address]) automated blood eosinophils/100 leukocytes on 2018-03-14 Eosinophils/100 0 % (no code) 1 - 4 % [place] [facility] WBC (Bld) [facility] ([address]24[address]) automated blood basophils/100 leukocytes on 2018-03-14 Basophils/100 0 % (no code) 0.5 - 1 % [place] [facility] WBC (Bld) [facility] (318[address]) automated blood basophil count (count/volume) on 2018-03-14 Basophils (Bld) 0.0 10*3/uL (no code) 0 - 0.3 10*3/uL [facility] [facility] [#/Vol] [facility] (04[address]) Vital Signs The data below is from unstructured sources Vital Response Date/Time Temperature (Fahrenheit) 97.4 degree s F (97.6 - 99.5) 10/03/2015 2:05pm Temperature (Calculated Celsius) 36. 10760 degrees C (36.4 - 37.5) 10/03/2015 2:05pm Temperature Source Tympanic 10/03/2015 2:05pm Pulse Rate (adult) 58 bpm (60 - 90) 10/03/2015 2:05pm Respiratory Rate 18 bpm (12 - 24) 10/03/2015 2:05pm O2 Sat by Pulse Oximetry 99 % (88 - 100) 10/03/2015 2:05pm Blood Pressure 98/68 mm Hg 10/03/2015 2:05pm Pain Numeric Pain Scale 0-No Pain 10/03/2015 2:05pm Pain Intensity 0 2015 1:40pm Height (Feet) 5 feet 2:00pm Height (Inches) 2.00 inches 10/03/2015 2:00pm Height (Calculated Centimeters) 157. 272746 cm 10/03/2015 2:00pm Weight (Pounds) 118 pounds 10/03/2015 2:00pm Weight (Ounces) 0.0 oz 0 10/03/2015 2:00pm Weight (Calculated Grams) 10532.90 gm 10/03/2015 2:00pm Weight (Calculated Kilograms) 53.523 900 kilograms 10/03/2015 2:00pm Calculated BMI 21.6 09/12 2:00pm Vital Response Date/Time Temperature (Fahrenheit) 98.1 degree s F (97.6 - 99.5) 03/15/2018 8:55am Temperature (Calculated Celsius) 36. 15023 degrees C (36.4 - 37.5) 03/15/2018 8:55am Temperature Source Temporal 03/15/2018 8:55am Pulse Rate (adult) 78 bpm (60 - 90) 03/15/2018 8:55am Respiratory Rate 18 bpm (12 - 24) 03/15/2018 8:55am O2 Sat by Pulse Oximetry 96 % (88 - 100) 03/15/2018 1:00am Blood Pressure 91/59 mm Hg 03/15/2018 8:55am Blood Pressure Mean 70 mm Hg (65 - 110) 03/15/2018 8:55am Pain Numeric Pain Scale 0-No Pain 03/15/2018 8:55am Pain Intensity 0 2018 6:13am Height (Feet) 5 feet 3:21pm Height (Inches) 2.00 inches 03/13/2018 3:21pm Height (Calculated Centimeters) 157. 339939 cm 03/13/2018 3:21pm Weight (Pounds) 132 pounds 03/13/2018 3:21pm Weight (Ounces) 0.0 oz 0 03/13/2018 3:21pm Weight (Calculated Grams) 19637.19 gm 03/13/2018 3:21pm Weight (Calculated Kilograms) 59.874 193 kilograms 03/13/2018 3:21pm Calculated BMI 24.1 02/13 3:21pm Weight Measurement Method Standing Scale 03/13/2018 3:21pm Interventions No Information Plan of Treatment The data below is from unstructured sources Discharge Date 10/03/15 2:05pm Instructions/Education Provided COLO NOSCOPY EGD-ESOPHAGOGASTRODUODENOSCOPY Prescriptions See Medication Section Discharge Date 03/15/18 12:25pm Disposition 01 HOME, SELF-CARE Instructions/Education Provided POST DISCHARGE VAGINAL DELIVERY DISCHARGE Forms Provided PDI Prescriptions See Medication Section Goals No Information Social History No Information Functional Status The data below is from unstructured sourcesNo functional status results.No functional status information available.No functional status information available. Mental Status No Information Encounters Encounter Normalized Encounter Encounter Diagnosis Care Provi marco antonio Organization Date Type 03-13-2018 Evaluation and no information KORY DILLARD Work no organization name - management of (no phone ) 03-15-2018 inpatient 10-04-2017 Patient encounter no information no name (no phone) no organization name (no phone) 05-30-2016 Patient encounter no information no name (no phone) no organization name (no phone) 05-13-2019 Patient encounter no information (no phone) [facility] (no phone) 03-13-2018 Patient encounter no information no name (no phone) no organization name - procedure (no phone) 03-15-2018 Medical Equipment No Information Payers Normalized Payer Value Private Health Insurance [id number] Advance Directives Directive Response Recor ded Date/Time Advance Directives No 10:20am Organ Donor No 10/03/15 10:20am Resuscitation Status Full Code 10/03/15 10:20am Directive Response Recor ded Date/Time Advance Directives No 4:10pm Organ Donor No 03/13/18 4:10pm Resuscitation Status Full Code 03/13/18 4:10pm Discharge Instructions Patient Instructions Physician Instructions New, Converted or Re-Newed RX: RX on Chart Plan of Care/Instructions/FU: follow-up with Dr. Bradley Activity as Tolerated: Yes Discharge Diet: No Restrictions Care Plan Patient Instructions:: follow-up with Dr. Bradley No hospital discharge instruction information available. Summary Purpose [employer] Submission Additional Source Comments This clinical document has been generated using [employer] software that has been certified by the Office of the National Coordinator for Health Information Technology (ONC 15.99.04.3023.Diam.31.00.0.179592) and the National Committee for [employer] (NCQA, as an eMeasure certified technology). FOR RECORDS PERTAINING TO PATIENTS WHO ARE OR HAVE BEEN ENROLLED IN A CHEMICAL D EPENDENCY/SUBSTANCE ABUSE PROGRAM, SOME INFORMATION MAY BE OMITTED. This clinica l summary was aggregated from multiple sources. Caution should be exercised in using it in the provision of clinical care. This summary normalizes information from multiple sources, and as a consequence, information in this document may ma terially change the coding, format and clinical context of patient data. In adan tion, data may be omitted in some cases. CLINICAL DECISIONS SHOULD BE BASED ON T HE PRIMARY CLINICAL RECORDS. [employer]. provides no warranty or guara ntee of the accuracy or completeness of information in this document.The followi ng information is based on time limited clinical information UNRECOGNIZED CONTENT PROVIDED BELOW FOR UNRECOGNIZED SECTION REASON FOR VISIT [id number]
--- OUTSIDE RECORDS SUMMARY | 2019-05-20 07:30 | XMS REPORT | CCD ---
Author Author Deja Bradley D.O. Organization JUJU BRADLEY DO [facility] Address [address] [place] [address] Phone Care Team Providers Care Regional Service Manager Name Role Phone Juju Bradley D.O., PP Unavailable CCM Unavailable Summary Purpose Interface Exchange Insurance Providers Payer name Policy type / Coverage type Covered constitution party ID Effective Begin Date Effective End Date Blue Cross Blue Shield Blue Cross/Blue Shield [id number] Unknown Family History Family History data not found Social History Social History Element Codes Description Effective Dates Tobacco history SNOMED CT: 007917306 Unknown if ever smoked 10/13 Marital status Unknown 07/28/2014 Number of children Unknown 2 07/28/2014 Employment Unknown Currently employed [employer] 07/28/2014 Number of years using tobacco Unknown [address]: 859311 Currently drinks alcohol 07/28 Has the patient [...] 11/02/2015 Active Pelvic and perineal pain ICD-9: [id number] ICD-10: R10.2 11/02/2015 Active Constipation, unspecified ICD-9: [...] Instructions Protonix 40 mg tablet,delayed release RxNorm: 356026 1 Tablet(s) Oral QD for stomach 05/13/2019 07/11/2019 Active Protonix 40 mg tablet,delayed release RxNorm: 900580 1 Tablet(s) PO QD for stomach 07/28/2018 05/12/2019 Inactive Macrobid 100 mg capsule RxNorm: 311184 1 Capsule(s) PO BID 03/27/19 19 04/02/2018 Inactive Zithromax Z-Jarad 250 mg tablet RxNorm: 484391 Tablet(s) PO take as directed 02/07/2018 03/26/2018 Inactive clindamycin HCl 300 mg capsule RxNorm: 186992 1 Capsule(s) PO BID 0 09/04/2017 09/03/2017 Inactive clindamycin HCl 300 mg capsule RxNorm: 165580 1 Capsule(s) PO BID 0 09/04/2017 09/10/2017 Inactive Macrobid 100 mg capsule RxNorm: 772170 1 Capsule(s) PO BID 04/30/19 18 05/03/2017 Inactive meloxicam 15 mg tablet RxNorm: 117639 1 Tablet(s) PO QD for edi l pain 04/04/2017 05/03/2017 Inactive meloxicam 15 mg tablet RxNorm: 922737 1 Tablet(s) PO QD for edi l pain 03/12/2017 04/03/2017 Inactive Protonix 40 mg tablet,delayed release RxNorm: 859200 1 Tablet(s ) PO QD 11/08/2016 03/11/2017 Inactive Dexilant 60 mg capsule, delayed release RxNorm: 417178 1 Capsul e(s) PO QD 11/08/2016 11/08/2016 Inactive Dexilant 60 mg capsule, delayed release RxNorm: 111825 1 Capsul e(s) PO QD 09/04/2016 11/07/2016 Inactive buspirone 5 mg tablet RxNorm: 488843 1 Tablet(s) PO BID 06/07/2016 Inactive Linzess 145 mcg capsule RxNorm: 9228485 1 Capsule(s) PO QD 08/29/19 16 02/24/2016 Inactive Protonix 40 mg tablet,delayed release RxNorm: 553803 1 Tablet(s ) PO QD 08/29/2015 06/06/2016 Inactive Protonix 40 mg tablet,delayed release RxNorm: 394239 1 Tablet(s) PO QD Replaces Dexilant 12/22/2014 2015 Inactive Proctosol HC 2.5 % rectal cream RxNorm: 9925860 25 Monika gram(s) RTL BID and after each bowel movement 12/14/2014 2015 Inactive doxycycline hyclate 100 mg capsule RxNorm: 7512420 1 Cap eduard(s) PO BID take only if preg test was negative 09/24/2014 09/30/2014 Inactive metronidazole 500 mg tablet RxNorm: 234410 1 Tablet(s) PO BID 09/2409/30/2014 Inactive Protonix 40 mg tablet,delayed release RxNorm: 421439 1 Tablet(s ) PO QD 09/22/2014 09/21/2014 Inactive Protonix 40 mg tablet,delayed release RxNorm: 825097 1 Tablet(s ) PO QD 09/22/2014 09/21/2014 Inactive Protonix 40 mg tablet,delayed release RxNorm: 242557 1 Tablet(s) PO QD Replaces Dexilant 09/22/2014 12/13/2014 Inactive Dexilant 60 mg capsule, delayed release RxNorm: 851270 1 Capsul e(s) PO QD 09/21/2014 09/21/2014 Inactive Dexilant 60 mg capsule, delayed release RxNorm: 695712 1 Capsul e(s) PO QD 08/11/2014 09/20/2014 Inactive hydroxyzine HCl 25 mg tablet RxNorm: 556794 1 Tablet(s) PO Q4-6H No Start Date 07/15/2016 Inactive Protonix 40 mg tablet,delayed release RxNorm: 960137 1 Tablet(s ) PO QD No Start Date 11/07/2016 Inactive Medication Administered No Medication Administered data Immunizations No Immunization data Results Observation Observation Code Item Item Code Result Date S ervice Location V [facility] [id number] Whiff Positive 09/02/2017 Unknown V [facility] 9464866 WBC Vaginal Moderate 09/02/2017 [facility] Clue Cells >20% 09/02/2017 Unknown V PROF B 0280877 Yeast Vaginal None 09/02/2017 Unkn own V PROF SWB 0458898 [employer] Swb Trich Ag Negative 09/02/2017 Un known [facility] [id number] [employer] [facility] BV Stain 10 09/02/2017 Unknow n V PROF B 9067388 [employer] Interp Results indicate Bacteria l Vaginosis Syndrome. 09/02/2017 Unknown BETA-HCG QUANT SERUM 15521 Beta hCG Todd 76594 mIU/mL Unknown GC/CHLAMYDIA DNA 41743|60587 Chl trach DNA Negative 017 Unknown GC/CHLAMYDIA DNA 38242|10903 GC PROBE Negative 07/18/2016 Unknown Wet Prep 5822756 Yeast Vaginal None 07/17/2016 Unkno wn Wet Prep 1581528 Trichomonas None 07/17/2016 Unknown GC/CHLAMYDIA DNA 16145|39991 Chl trach DNA Negative 016 Unknown GC/CHLAMYDIA DNA 33681|81344 GC PROBE Negative 11/04/2015 Unknown Wet Prep 6782250 Yeast Vaginal None 11/03/2015 Unkno wn Wet Prep 6117906 Trichomonas None 11/03/2015 Unknown LIPASE 72234 LIPASE 21 IU/L 07/28/2014 Unknown GFR CALC 6051463 GFR AA >60 ML/MIN 07/28/2014 Unknown GFR CALC 1269265 GFR NON-AA >60 ML/MIN 07/28/2014 Unknown THYROID STIMULATING HORMONE 94091 TSH 1.944 uIU/ML 07/28/2014 Unknown AMYLASE 81641 AMYLASE 59 IU/L 07/28/2014 Unknown COMPLETE BLOOD COUNT 2317139 WBC 5.9 10e9/L 07/29/19 15 Unknown COMPLETE BLOOD COUNT 0931688 RBC 4.45 10e12/L 2014 Unknown COMPLETE BLOOD COUNT 9991020 HGB 13.6 g/dL 5 Unknown COMPLETE BLOOD COUNT 4314331 HCT DET 39.5 % 5 Unknown COMPLETE BLOOD COUNT 7095533 MCV 88.8 fL 5 Unknown COMPLETE BLOOD COUNT 4175677 MCH 30.6 pg 5 Unknown COMPLETE BLOOD COUNT 1752729 MCHC 34.4 g/dL 5 Unknown COMPLETE BLOOD COUNT 8098260 PLT 300 10e9/L 07/29/19 15 Unknown COMPLETE BLOOD COUNT 0735318 MPV 9.8 fL 5 Unknown COMPLETE BLOOD COUNT 7975727 MATI % 60.0 % 5 Unknown COMPLETE BLOOD COUNT 4002296 LY % 33.2 % 5 Unknown COMPLETE BLOOD COUNT 3827642 MON % 5.8 % 5 Unknown COMPLETE BLOOD COUNT 2837575 EOS % 0.7 % 5 Unknown COMPLETE BLOOD COUNT 3424943 BASO % 0.3 % 5 Unknown COMPLETE BLOOD COUNT 9576662 RDW 12.3 % 5 Unknown COMPLETE BLOOD COUNT 9195094 ABS MATI 3.54 10e9/L 015 Unknown COMPLETE BLOOD COUNT 3278012 ABS LYMPH 1.96 10e9/L 015 Unknown COMPLETE BLOOD COUNT 9164194 ABS MONO 0.34 10e9/L 015 Unknown COMPLETE BLOOD COUNT 3987480 ABS EOS 0.04 10e9/L 015 Unknown COMPLETE BLOOD COUNT 2463908 ABS BASO 0.02 10e9/L 015 Unknown COMPLETE BLOOD COUNT 8881549 RDW-SD 39.0 fL 5 Unknown COMPREHENSIVE METABOLIC 08801 AST 24 U/L 2014 Unknown COMPREHENSIVE METABOLIC 07611 ALT 27 IU/L 2014 Unknown COMPREHENSIVE METABOLIC 18439 BUN 11 MG/DL 2014 Unknown COMPREHENSIVE METABOLIC 97296 ALBUMIN 4.1 GM/DL 2014 Unknown COMPREHENSIVE METABOLIC 21381 CHLORIDE 101 MMOL/L 07/28 Unknown COMPREHENSIVE METABOLIC 56827 BILI TOT 0.4 MG/DL 2014 Unknown COMPREHENSIVE METABOLIC 17767 ALK PHOS 68 U/L 2014 Unknown COMPREHENSIVE METABOLIC 30470 SODIUM 138 MMOL/L 07/28 Unknown COMPREHENSIVE METABOLIC 62881 CREATININE 0.68 MG/DL 07/12 Unknown COMPREHENSIVE METABOLIC 43006 CALCIUM 9.4 MG/DL 2014 Unknown COMPREHENSIVE METABOLIC 60090 POTASSIUM 4.6 MMOL/L 07/28 Unknown COMPREHENSIVE METABOLIC 17835 PROT TOT 6.8 GM/DL 2014 Unknown COMPREHENSIVE METABOLIC 03268 Glucose 82 MG/DL 2014 Unknown COMPREHENSIVE METABOLIC 02107 BICARB 30 MMOL/L 2014 Unknown COMPREHENSIVE METABOLIC 67429 ANION GAP 7 MEQ/L 2014 Unknown Procedures Procedure Codes Date V PROF SWB CPT-4: 8809466 09/02/2017 CULTURE OTHR SPECIMN AEROBIC CPT-4: 11708 09/02/2017 CHORIONIC GONADOTROPIN TEST CPT-4: 12278 09/02/2017 URINALYSIS NONAUTO W/O SCOPE CPT-4: 67288 11/08/2016 URINALYSIS NONAUTO W/O SCOPE CPT-4: 22989 07/16/2016 URINE TEST CPT-4: 21363 07/16/2016 CULTURE OTHR SPECIMN AEROBIC CPT-4: 55017 07/16/2016 GC/CHLAMYDIA DNA (BD-ProbeTec) CPT-4: 35357|01209 7 C WET LA CPT-4: 14505 07/16/2016 GC/CHLAMYDIA DNA (BD-ProbeTec) CPT-4: 66778|56832 6 C WET LA CPT-4: 69890 11/03/2015 URINE CULTURE/ COLONY COUNT CPT-4: 64458 11/03/2015 URINALYSIS NONAUTO W/O SCOPE CPT-4: 67896 06/09/2015 URINE TEST CPT-4: 42011 06/09/2015 URINE CULTURE/ COLONY COUNT CPT-4: 45194 04/06/2015 URINALYSIS NONAUTO W/O SCOPE CPT-4: 16452 04/06/2015 URINE CULTURE/ COLONY COUNT CPT-4: 35091 09/21/2014 URINALYSIS NONAUTO W/O SCOPE CPT-4: 16437 09/21/2014 ROUTINE VENIPUNCTURE CPT-4: 18917 07/28/2014 ASSAY THYROID STIM HORMONE CPT-4: 20696 07/28/2014 COMPREHEN METABOLIC PANEL CPT-4: 49458 07/28/2014 COMPLETE CBC W/AUTO DIFF WBC CPT-4: 25688 07/28/2014 ASSAY OF AMYLASE CPT-4: 64051 07/28/2014 ASSAY OF LIPASE CPT-4: 01910 07/28/2014 Vital Signs Date Vital 05/13/2019 Blood [...] 1: 114/70 Code: 8480-6 BMI: 23.0 Code: 01688-7 Heart Rate 1: 72 bpm Height: 5'2" Respiratory Rate: 20 bpm Temperature: 36 .6 (C) / 97.8 (F) Weight: 126 lbs 03/12/2017 Blood Pressure 1: 114/78 Code: 8480-6 BMI: 23.6 Code: 61182-6 Heart Rate 1: 72 bpm Height: 5'2" Respiratory Rate: 20 bpm Temperature: 37 .0 (C) / 98.6 (F) Weight: 129 lbs 11/08/2016 Blood Pressure 1: 122/76 Code: 8480-6 BMI: 22.5 Code: 00176-5 Heart Rate 1: 76 bpm Height: 5'2" Respiratory Rate: 18 bpm SpO2: 97% Tempera ture: 36.3 (C) / 97.3 (F) Weight: 123 lbs 07/16/2016 Blood Pressure 1: 92/60 Code: 8480-6 BMI: 22.1 C ode: 74219-3 Heart Rate 1: 68 bpm Height: 5'2" Respiratory Rate: 20 bpm Temperature: 36 .8 (C) / 98.2 (F) Weight: 121 lbs 06/07/2016 Blood Pressure 1: 122/78 Code: 8480-6 Heart Rate 1: 80 bpm Respiratory Rate: 26 bpm SpO2: 96% Temperature: 36.6 (C) / 97.9 (F) We ight: 125 lbs 11/03/2015 Blood Pressure 1: 106/64 Code: 8480-6 BMI: 21.8 Code: 41340-4 Heart Rate 1: 76 bpm Height: 5'2" Respiratory Rate: 24 bpm SpO2: 96% Tempera ture: 36.2 (C) / 97.2 (F) Weight: 119 lbs 08/29/2015 Blood Pressure 1: 110/62 Code: 8480-6 BMI: 21.9 Code: 40313-7 Heart Rate 1: 70 bpm Height: 5'2" Respiratory Rate: 18 bpm SpO2: 98% Tempera ture: 36.8 (C) / 98.2 (F) Weight: 120 lbs 08/11/2015 Blood Pressure 1: 11868 Code: 8480-6 BMI: 21.4 Code: 27423-5 Heart Rate 1: 68 bpm Height: 5'2" Respiratory Rate: 22 bpm SpO2: 98% Tempera ture: 37.0 (C) / 98.6 (F) Weight: 117 lbs 06/09/2015 Blood Pressure 1: 11268 Code: 8480-6 BMI: 21.6 Code: 15934-8 Heart Rate 1: 66 bpm Height: 5'2" Respiratory Rate: 20 bpm SpO2: 98% Tempera ture: 36.3 (C) / 97.3 (F) Weight: 118 lbs 02/02/2015 Blood Pressure 1: 12078 Code: 8480-6 BMI: 22.5 Code: 97845-2 Heart Rate 1: 76 bpm Height: 5' Respiratory Rate: 20 bpm Temperature: 37 .0 (C) / 98.6 (F) Weight: 117 lbs 12/22/2014 Blood Pressure 1: 92 Code: 8480-6 BMI: 21.5 C ode: 88608-4 Heart Rate 1: 80 bpm Height: 5' Respiratory Rate: 20 bpm Temperature: 36 .6 (C) / 97.8 (F) Weight: 112 lbs 12/14/2014 Blood Pressure 1: 96 Code: 8480-6 BMI: 21.5 C ode: 90448-8 Heart Rate 1: 80 bpm Height: 5' Respiratory Rate: 20 bpm Temperature: 36 .9 (C) / 98.5 (F) Weight: 112 lbs 09/24/2014 Blood Pressure 1: 11260 Code: 8480-6 BMI: 21.5 Code: 28123-3 Heart Rate 1: 72 bpm Height: 5' Respiratory Rate: 20 bpm Temperature: 37 .0 (C) / 98.6 (F) Weight: 112 lbs 08/11/2014 Blood Pressure 1: 9660 Code: 8480-6 BMI: 21.7 C ode: 59370-2 Heart Rate 1: 64 bpm Height: 5' Respiratory Rate: 20 bpm Temperature: 36 .9 (C) / 98.4 (F) Weight: 113 lbs 07/28/2014 Blood Pressure 1: 116/78 Code: 8480-6 BMI: 21.5 Code: 46445-1 Heart Rate 1: 80 bpm Height: 5' [...] follow up 08/11/2014 ~generic 07/28/2014 [facility]ters Encounter Performer Location Codes Date ([id number]) OFFICE/OUTPATIENT VISIT EST Diagnosis: Ventral hernia[ICD10: K43.9] Diagnosis: Epigastric pain[ICD10: R10.13] Juju BRADLEY DO [facility] CPT-4: 43352 05/13/2019 ([id number]) OFFICE/OUTPATIENT VISIT EST Diagnosis: Left upper quadrant pain[ICD10: R10.12] Diagnosis: Left lower quadrant pain[ICD10: R10.32] Diagnosis: Slow transit constipation[ICD10: K59.01] Juju BRADLEY DO [facility] CPT-4: 59089 03/27/2018 ([id number]) OFFICE/OUTPATIENT VISIT EST Diagnosis: Acute upper respiratory infection, unspecified[ICD10: J06.9] Altagracia BRADLEY DO [facility] CPT-4: 37172 02/07/2018 ([id number]) OFFICE/OUTPATIENT VISIT EST Diagnosis: Acute vaginitis[ICD10: N76.0] Diagnosis: Amenorrhea, unspecified[ICD10: N91.2] Juju BRADLEY [facility] CPT-4: 61468 09/02/2017 ([id number]) OFFICE/OUTPATIENT VISIT EST Diagnosis: Left lower quadrant pain[ICD10: R10.32] Altagracia BRADLEY [facility] CPT-4: 49943 04/29/2017 ([id number]) OFFICE/OUTPATIENT VISIT EST Diagnosis: Plantar fascial fibromatosis[ICD10: M72.2] Juju BRADLEY [facility] CPT-4: 34969 04/04/2017 ([id number]) OFFICE/OUTPATIENT VISIT EST Diagnosis: Plantar fascial fibromatosis[ICD10: M72.2] Juju BRADLEY [facility] CPT-4: 49516 03/12/2017 OFFICE/OUTPATIENT VISIT EST Diagnosis: Generalized abdominal pain[ICD10: R10.84] Altagracia BRADLEY [facility] CPT-4: 34767 11/08/2016 ([id number]) OFFICE/OUTPATIENT VISIT EST Diagnosis: Pelvic and perineal pain[ICD10: R10.2] Diagnosis: Acute vaginitis[ICD10: N76.0] Juju BRADLEY [facility] CPT-4: 11257 07/16/2016 ([id number]) OFFICE/OUTPATIENT VISIT EST Diagnosis: Anxiety disorder, unspecified[ICD10: F41.9] Neisha Sawant JUJU BRADLEY [facility] CPT-4: 25864 06/07/2016 ([id number]) OFFICE/OUTPATIENT VISIT EST Diagnosis: Pelvic and perineal pain[ICD10: R10.2] Diagnosis: Acute vaginitis[ICD10: N76.0] Diagnosis: Mastodynia[ICD10: N64.4] Neisha Sawant [facility] CPT-[facility]: 13237 11/03/2015 ([id number]) OFFICE/OUTPATIENT VISIT EST Diagnosis: Generalized abdominal pain[ICD10: R10.84] Diagnosis: Constipation, unspecified[ICD10: K59.00] Neisha Sawant SHAI MANSOOR Yusuf. [facility] CPT-4: 99036 08/29/2015 ([id number]) OFFICE/OUTPATIENT VISIT EST Diagnosis: Generalized abdominal pain[ICD10: R10.84] Diagnosis: Constipation, unspecified[ICD10: K59.00] Neisha GIBBONS ANABEL [facility]ufBerto [facility] CPT-4: 74340 08/11/2015 ([id number]) OFFICE/OUTPATIENT VISIT EST Diagnosis: Generalized abdominal pain[ICD10: R10.84] Diagnosis: Constipation, unspecified[ICD10: K59.00] [facility] CPT-4: 16536 06/09/2015 ([id number]) OFFICE/OUTPATIENT VISIT EST Diagnosis: Pelvic and perineal pain[ICD10: R10.2] Juju LITTLE MadelinBerto MJ [email or web address] [facility] CPT-4: 41183 04/06/2015 OFFICE/OUTPATIENT VISIT EST Diagnosis: Mastodynia[ICD10: N64.4] Kaila CARRANZA [facility] CPT-4: 49431 02/02/2015 ([id number]) OFFICE/OUTPATIENT VISIT EST Diagnosis: Generalized abdominal pain[ICD10: R10.84] Diagnosis: Constipation, unspecified[ICD10: K59.00] Juju TEJEDA MadelinBerto [facility] [email or web address] [facility] CPT-4: 75833 12/22/2014 OFFICE/OUTPATIENT VISIT EST Diagnosis: Residual hemorrhoidal skin tags[ICD10: K64.4] Kaila TEJEDA MadelinBerto [facility]ER [email or web address] [facility] CPT-4: 51042 12/14/2014 OFFICE/OUTPATIENT VISIT EST Diagnosis: Left adnexal tenderness[ICD9: 625.9] Vianey Brown JEREMIAH BRADLEY DO [facility] CPT-4: 67991 09/24/2014 ([id number]) OFFICE/OUTPATIENT VISIT EST Diagnosis: DYSURIA[ICD9: 788.1] Juju CUEVAS CPT-4: 13318 09/21/2014 ([id number]) OFFICE/OUTPATIENT VISIT EST Diagnosis: ABDOMINAL PAIN[ICD9: 789.00] Juju BRADLEY DO [facility] CPT-4: 79193 08/11/2014 ([id number]) OFFICE/OUTPATIENT VISIT NEW Diagnosis: ABDOMINAL PAIN[ICD9: 789.00] Juju BRADLEY DO [facility] CPT-4: 53579 07/28/2014 Plan of Care Planned Activity Notes Codes Status Date Visit Diagnosis Plan: Ventral hernia Discussion: Refer ral to surgery since is getting strangulated at times and causing discomfort--discussed with Dr. Pike ICD-9 : 553.20 ICD-10 : K43.9 05/13/2019 Patient Education: Protonix- OptimizeRX Coupon [id number] [email or web address] Completed 05/13/2019 Care Plan: Referral Order SNOMED-CT : 30 6485741 Pending 05/13/2019 Visit Diagnosis Plan: Slow transit constipation Discus netta: Increase stool softener to BID ICD-9 : 564.01 ICD-10 : K59.01 03/27/2018 Visit Diagnosis Plan: Left upper quadrant pain Discuss ion: Cover with macrobid for etiology To ER this weekend if worsens ICD-9 : 789.02 ICD-10 : R10.12 03/27/2018 Appointment: Juju Bradley WPtel: [phone] [facility] WORK IN 03/27/2018 Visit Diagnosis Plan: [...] ICD-10 : J06.9 02/07/2018 Appointment: Altagracia Velazquez [address] [place] [address] ACUTE ILLNESS 02/07/2018 Visit Diagnosis Plan: Acute vaginitis Discussion: Vagi nal cultures done ICD-9 : 623.5 ICD-10 : N76.0 09/02/2017 Visit Diagnosis Plan: Amenorrhea, unspecified Discussi on: Check quantitative BHCG May need pelvic US Will await above results Discussed need to see WELFARE SPECIALIST LYLE ICD-9 : 626.0 ICD-10 : N91.2 09/02/2017 Appointment: Juju Bradley WPtel: [address] [place] [address] ACUTE ILLNESS 09/02/2017 Patient Education: Patient Medication Summary Completed 09/02/2017 Visit Diagnosis Plan: Left lower quadrant pain Discuss ion: 5 more days of macrobid bid. instructed patient to rtc on if not any better and will perform abdominal studies. avoid greasy/fatty foods. ICD-9 : 789.04 ICD-10 : R10.32 04/29/2017 Appointment: Altagracia Velazquez [address] ACUTE ILLNESS 04/29/2017 Patient Education: Patient [...] : M72.2 04/04/2017 Appointment: Juju Bradley WPtel: [address] [place], [place] [phone] FOLLOW UP 04/04/2017 Patient Education: Patient Medication Summary Completed 04/04/2017 Appointment: Juju Bradley WPtel: [address] [place], [place] [phone] US RESCHEDULED 03/25/2017 Visit Diagnosis Plan: Plantar fascial fibromatosis Dis cussion: Heal arch inserts Ice and stretch Mobic Recheck 2 weeks to see if needs injections ICD-9 : 728.71 ICD-10 : M72.2 03/12/2017 Appointment: Juju Bradley WPtel: [address] [place] [address] US patient called 03/11/17 to confirm ACUTE ILLNESS 03/12/2017 Patient Education: Patient Medication Summary Completed 03/12/2017 Appointment: Altagracia Velazquez [address] [place] [address] CANCELED 01/11/2017 Visit Diagnosis Plan: Generalized abdominal pain Discu ssion: Fill prescription of dexilant and take daily for abdominal pain. will notify her of results of urine culture on saturday and order referral for urology if dexilant not working and culture normal. Follow Up: As needed ICD-9 : 789.07 ICD-10 : R10.84 11/08/2016 Appointment: Altagracia Velazquez [address] [place] [address] ACUTE ILLNESS 11/08/2016 Patient Education: Patient Medication Summary Completed 11/08/2016 Visit Diagnosis Plan: Pelvic and perineal pain Discuss ion: test negative Vaginal cultures done May need Pelvic US To ER if worsens ICD-9 : 625.9 ICD-10 : R10.2 07/16/2016 Appointment: Juju Bradley WPtel: [address] [place] [address] ACUTE ILLNESS 07/16/2016 Patient Education: Patient Medication Summary Completed 07/16/2016 Visit Diagnosis Plan: Anxiety disorder, unspecified Di scussion: Start buspar as above Start decreasing frequency of hydroxyzine Discussed non pharm options for anxiety relief as well Call in 2 weeks for update and will increase dose if needed ICD-9 : 300.00 ICD-10 : F41.9 06/07/2016 Appointment: Neisha Sawant [address] [place], [place] [address] 06/06 confirmed~sl FOLLOW UP 06/07/2016 Patient Education: Patient Medication Summary Completed 06/07/2016 Visit Plan: Urine dip wnl - culture pend ing G/C, ASHLEIGH and wet prep collected Breast US ordered Will call with results when available 11/03/2015 Appointment: Jose Sawanty [address] [place], [place] [phone] 11/01 confirmed~sl ACUTE ILLNESS 11/03/2015 Patient Education: Patient Medication Summary Completed 11/03/2015 Referral: Andrade Holm WPtel: [address] [id number] Referral Appointment Confirmed 10/12/2015 Visit Plan: Referral to Dr Holley Keep appt with GI Restart protonix and linzess 08/29/2015 Appointment: Jese Neisha [address] [place], [place] [phone] ACUTE ILLNESS 08/29/2015 Patient Education: Patient Medication Summary Completed 08/29/2015 Care Plan: Referral Order SNOMED-CT : 30 6602505 Pending 08/29/2015 Visit Plan: Ok with referring onto GI as patient wishes Discussed food diary, proper fiber and water intake, stool softeners when needed, etc Stressed importance of only taking meds and supplements that are safe during since she is hoping to conceive soon 08/11/2015 Appointment: Neisha Sawant [address] [place], [place] [address] ACUTE ILLNESS 08/11/2015 Patient Education: Patient Medication Summary Completed 08/11/2015 Care Plan: Referral Order SNOMED-CT : 30 4010970 Pending 08/11/2015 Visit Plan: Office dip and HCG negative Proceed with xray today If negative, likely needs G/S consult for EGD/Arthur 06/09/2015 Appointment: Neisha Sawant [address] [place], [place] [phone] ACUTE ILLNESS 06/09/2015 Patient Education: Patient Medication Summary Completed 06/09/2015 Appointment: Juju Bradley WPtel: [address] [place] [address] 04/06/2015 Patient Education: Patient Medication Summary Completed 04/06/2015 Visit Plan: Recommended starting daily V itamin E supplement 400 U Magnesium Citrate 200 mg PO daily at least 2 weeks prior to onset of menstruation. Avoid caffeinated beverages and increase daily water intake Follow-up in one month if no improvement, will repeat labs. 02/02/2015 Appointment: Kaila Smith WPtel: [address] [place] [address] 02/01 confirmed ~sl ACUTE ILLNESS 02/02/2015 Patient Education: Patient Medication Summary Completed 02/02/2015 Appointment: Kaila Smith WPtel: [address] [place] [address] ACUTE ILLNESS 01/27/2015 Visit Plan: Restart protonix Finish proc tosol and hemorrhoidal suppository Add back protonix Add Linzess 145mcg daily Call in 1week on how doing 12/22/2014 Appointment: Juju Bradley WPtel: [address] [place] [address] 12/21 #s no work ~sl 12/22 first # not working tried 2nd laz l # vm cn FOLLOW UP 12/22/2014 Patient Education: Patient Medication Summary Completed 12/22/2014 Visit Plan: Proctosol HC rectal cream to be used rectally Stiz baths Stool softeners High fiber diet 12/14/2014 Appointment: Kaila Smith WPtel: [address] [place] [address] ACUTE ILLNESS 12/14/2014 Patient Education: Patient Medication Summary Completed 12/14/2014 Care Plan: US EXAM PELVIC COMPLETE LOINC : 51173-7 Ordered 09/27/2014 Visit Plan: Serum hCG (if positive, then Beta hCG) and CBC at [facility] Pelvic U/S at [facility] ERx for Doxy and Metronidazole only if test is negative for presumptive PID treatment 09/24/2014 Appointment: Vianey Brown WPtel: [address] [place] [address] ACUTE ILLNESS 09/24/2014 Patient Education: Patient Medication Summary Completed 09/24/2014 Appointment: Juju Bradley WPtel: [address] [place] [address] UA 09/21/2014 Patient Education: Patient Medication Summary Completed 09/21/2014 Appointment: Juju Bradley WPtel: [phone] [facility] US feels better -mf FOLLOW UP 08/16/2014 Visit Plan: Dexilant 60mg daily for 4 mo re weeks Patient will call in 4weeks and if still doing okay with pain will go to low dose omprazole for 1month then reduce to pepcid for 1month then stop meds and see how does 08/11/2014 Appointment: Juju Bradley WPtel: [phone] [facility] 08/10 vm not set up cn/called additional # left vm cb... con firmed- mf FOLLOW UP 08/11/2014 Patient Education: Patient Medication Summary Completed 08/11/2014 Visit Plan: Had conduit cleaner today Check CBC, CMP, Amylase, Lipase, TSH Start Restora once daily Start Dexilant once daily Return in 2weeks If symptoms not improving will consider scan vs scopes 07/28/2014 Appointment: Juju Bradley WPtel: [phone] [facility] [id number] 07/27 vm not set up cn tried 2nd cell nu mber Left message to call cn... confirmed -mf NEW PATIENT 07/28/2014 Patient Education: Patient Medication Summary Completed 07/28/2014 Referral: Manuel Pike WPtel: [address] [place], [place] [phone] [place] Referral Appointment Requested Referral: Rangel Holley WPtel: [address] [id number] [place] Referral Appointment Requested Referral: Ortiz Rudd WPtel: 2 [id number] [place] Referral Appointment Requested Instructions Comment . [...] If negative, likely needs G/S consult for EGD/Arthur . Recommended starting daily Vitamin E s [...] on how doing Patient speaks very little Slovak, is a ccompanied by conduit cleaner. Indicates understanding of Instructions. Apply rectal cream bid and after each bowel movement Warm tub soaks for 15 min 2 - 3 times daily Avoid constipation - Recommended stool softeners daily Drink plenty of water . Proctosol HC rectal cream to be used r ectally Stiz baths Stool softeners High fiber diet . Serum hCG (if positive, then Beta hCG) and CBC at [facility] Pelvic U/S at [facility] ERx for Doxy and Metronidazole only if test is negative for presumptive PID treatment . Dexilant 60mg daily for 4 more weeks Patient will call in 4weeks and if still doing okay with pain will go to low dose omprazole for 1month then reduce to pepcid for 1month then stop meds and see how does . Had conduit cleaner today Check CBC, CMP, Amylase, Lipase, TSH [...]
--- OUTSIDE RECORDS SUMMARY | 2019-05-20 07:30 | XMS REPORT ---
Author Author Deja Baldwin Doctor Organization [facility] [address] [facility] Address Unknown Phone Unavailable Care Team Providers Care Yardage Control Operator Name Role Phone Migration, Doctor Unavailable Unavailable PROBLEMS Type Condition ICD9-CM Code [id number] Code Onset Dates Condition S tatus SNOMED Code Problem Hyperventilation syndrome F45.8 Acti ve 153944619 Problem Anxiety disorder, unspecified F41.9 Active 93261301 Problem Abdominal pain, left lower quadrant 789.04 Active 087361078 Problem Costochondritis 733.6 Active 6410 9004 Problem Acute pharyngitis 462 Active 36 [id number] ALLERGIES No Information ENCOUNTERS Encounter Location Date Diagnosis [facility] [address] [address] Oct, Acute cystitis without hemat uria N30.00 [facility] [address] [address] May, [facility] [address] [address] May, Anxiety disorder, unspecifie d F41.9 and Hyperventilation syndrome F45.8 [facility] [address] [address] Aug, Abdominal discomfort R10.9 [facility] [address] [id number] May, [facility] [address] [address] May, [facility] [address] [place] [id number] [place] [phone] Dec, [facility] [address] [address] Dec, [facility] [address] [id number] [address] [place] [phone] Dec, [facility] [address] [id number] [address] [place] [phone] Dec, [facility] [address] [id number] [address] [place] [phone] Dec, [facility] [address] [id number] [address] [place] [phone] Sep, [facility] [address] [id number] [address] [place] [phone] Feb, [facility] [address] [id number] [address] [place] [phone] Feb, [facility] [address] [id number] [address] [place] [phone] Feb, [facility] [address] [id number] [address] [place] [phone] Apr, IMMUNIZATIONS No Known Immunizations SOCIAL HISTORY Never Assessed REASON FOR VISIT EMR-[facility] [place] PLAN OF CARE VITAL SIGNS MEDICATIONS No Known Medications RESULTS No Results PROCEDURES No Known procedures INSTRUCTIONS MEDICATIONS ADMINISTERED No Known Medications
--- OUTSIDE RECORDS SUMMARY | 2019-05-20 07:31 | XMS REPORT | Continuity of Care Document ---
Author Organization Unknown Address Unknown Phone Unavailable Allergies Active Description Code Type Severity Reaction Onset Reported/Identified Relationship to Patient Clinical Status Yes No Known Drug Allergies [id number] Drug Allergy Unknown N/A 05/19/2007 Medications There is no data. Problems Date Dx Coded Attending Type Code Diagnosis Diagnosed By 09/26/2007 616.10 Vag initis And Vulvovaginitis Unspecified 09/26/2007 ROBERT AVILA PA-C 616.10 Vaginitis And Vulvovaginitis Unspecified 09/26/2007 616.10 Vag initis And Vulvovaginitis Unspecified 09/26/2007 SIOBHAN STEWART MD 616.10 Vaginitis And Vulvovaginitis Unspecified 09/02/2008 724.1 Midb ack Pain 09/02/2008 788.41 Uri nary Frequency Increased 09/02/2008 ROBERT AVILA PA-C 724.1 Midback Pain 09/02/2008 ROBERT AVILA PA-C 788.41 Urinary Frequency Increased 09/02/2008 724.1 Midb ack Pain 09/02/2008 788.41 Uri nary Frequency Increased 09/02/2008 SIOBHAN STEWART MD 724.1 Midback Pain 09/02/2008 SIOBHAN STEWART MD 788.41 Urinary Frequency Increased 03/06/2010 V25.02 CON TRACEPTION COUNSELING- ANY METHOD 03/06/2010 V72.31 VETERINARY MILK SPECIALIST EXAM, ROUTINE 03/06/2010 ROBERT AVILA PA-C V25.02 CONTRACEPTION COUNSELING- ANY METHOD 03/06/2010 ROBERT AVILA PA-C V72.31 VETERINARY MILK SPECIALIST EXAM, ROUTINE 03/06/2010 V25.02 CON TRACEPTION COUNSELING- ANY METHOD 03/06/2010 V72.31 VETERINARY MILK SPECIALIST EXAM, ROUTINE 03/06/2010 SIOBHAN STEWART MD V25.02 CONTRACEPTION COUNSELING- ANY METHOD 03/06/2010 SIOBHAN STEWART MD V72.31 VETERINARY MILK SPECIALIST EXAM, ROUTINE 04/19/2010 780.2 Sync ope And Collapse 04/19/2010 785.1 Palp itations 04/19/2010 ROBERT AVILA PA-C 780.2 Syncope And Collapse 04/19/2010 ROBERT AVILA PA-C 785.1 Palpitations 04/19/2010 780.2 Sync ope And Collapse 04/19/2010 785.1 Palp itations 04/19/2010 SIOBHAN STEWART MD 780.2 Syncope And Collapse 04/19/2010 SIOBHAN STEWART MD 785.1 Palpitations 04/27/2010 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 04/27/2010 799.21 Ner vousness 04/27/2010 ROBERT AVILA PA-C 610.1 DIFFUSE CYSTIC MASTOPATHY 04/27/2010 ROBERT AVILA PA-C 799.21 Nervousness 04/27/2010 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 04/27/2010 799.21 Ner vousness 04/27/2010 SIOBHAN STEWART MD 610.1 DIFFUSE CYSTIC MASTOPATHY 04/27/2010 SIOBHAN STEWART MD 799.21 Nervousness 03/03/2012 733.6 TIET ZE'S DISEASE 03/03/2012 ROBERT AVILA PA-C 733.6 TIETZE'S DISEASE 03/03/2012 733.6 TIET ZE'S DISEASE 03/03/2012 SIOBHAN STEWART MD 733.6 TIETZE'S DISEASE 12/19/2012 SIOBHAN STEWART MD 462 PHARYNGITIS ACUTE 01/06/2013 SIOBHAN STEWART MD 789.04 ABDOMINAL PAIN LEFT LOWER QUADRANT 09/24/2014 Ot 592.0 09/24/2014 Ot 789.09 09/24/2014 Ot 611.71 09/24/2014 Ot 724.5 09/24/2014 Ot 786.50 09/24/2014 MATTHEW SALTER MD Ot 611.7 1 09/24/2014 Ot 611.71 09/24/2014 Ot 620.2 09/24/2014 Ot 625.9 09/24/2014 Ot 789.00 09/24/2014 Ot 790.5 09/28/2014 GARY CHEPE M LOCKSTITCH SHOULDER JOINER Ot 625.9 10/19/2014 CHEPE VEGA LOCKSTITCH SHOULDER JOINER Ot 625.9 10/21/2014 CHEPE VEGA LOCKSTITCH SHOULDER JOINER Ot 625.9 06/10/2015 Ot 592.0 CALC ULUS OF KIDNEY 06/10/2015 Ot 789.09 ABD OMINAL PAIN, OTHER SPECIFIED SITE 06/10/2015 Ot 611.71 MAS TODYNIA 06/10/2015 Ot 724.5 BACK ACHE NOS 06/10/[address] PAIN NOS 06/10/2015 JOIE BUSH, MATTHEW March Ot 611.7 1 MASTODYNIA 06/10/2015 Ot 611.71 MAS TODYNIA 06/10/2015 Ot 620.2 OVAR AJAY CYST NEC/NOS 06/10/2015 Ot 625.9 FEM GENITAL SYMPTOMS NOS 06/10/2015 Ot 789.00 ABD OMINAL PAIN, UNSPECIFIED SITE 06/10/2015 Ot 790.5 ABN SERUM ENZY LEVEL NEC 06/10/2015 CHEPE VEGA LOCKSTITCH SHOULDER JOINER Ot 625.9 FEM GENITAL SYMPTOMS NOS 06/14/2015 FELIPE WILL WOOL SAMPLER Ot K59.00 CONSTIPATION, UNSPECIFIED 06/15/2015 Ot 592.0 CALC ULUS OF KIDNEY 06/15/2015 Ot 789.09 ABD OMINAL PAIN, OTHER SPECIFIED SITE 06/15/2015 Ot 611.71 MAS TODYNIA 06/15/2015 Ot 724.5 BACK ACHE NOS 06/15/[address] PAIN NOS 06/15/2015 JOIE BUSH, MATTHEW March Ot 611.7 1 MASTODYNIA 06/15/2015 Ot 611.71 MAS TODYNIA 06/15/2015 Ot 620.2 OVAR AJAY CYST NEC/NOS 06/15/2015 Ot 625.9 FEM GENITAL SYMPTOMS NOS 06/15/2015 Ot 789.00 ABD OMINAL PAIN, UNSPECIFIED SITE 06/15/2015 Ot 790.5 ABN SERUM ENZY LEVEL NEC 06/15/2015 HCEPE VEGA LOCKSTITCH SHOULDER JOINER Ot 625.9 FEM GENITAL SYMPTOMS NOS 06/15/2015 FELIPE WILL WOOL SAMPLER Ot K59.00 CONSTIPATION, UNSPECIFIED 06/15/2015 FELIPE WILL WOOL SAMPLER Ot K59.00 CONSTIPATION, UNSPECIFIED 07/07/2015 FELIPE WILL WOOL SAMPLER Ot K59.00 CONSTIPATION, UNSPECIFIED 10/03/2015 FELIPE WILL WOOL SAMPLER Ot K59.00 CONSTIPATION, UNSPECIFIED 10/03/2015 JENNIFER BUSH, MARCIA Ferrell Ot K21.9 GASTRO-ESOPHAGEAL REFLUX DISEASE WITHOUT 10/03/2015 JENNIFER BUSH, MARCIA M Ot Z01.818 ENCOUNTER FOR OTHER PREPROCEDURAL EXAMIN 10/03/2015 JENNIFER BUSH, MARCIA M Ot K20.9 ESOPHAGITIS, UNSPECIFIED 10/03/2015 JENNIFER BUSH, MARCIA M Ot K25.9 GASTRIC ULCER, UNSP ACUTE OR CHRONIC, 10/03/2015 JENNIFER BUSH, MARCIA M Ot R19.4 CHANGE IN BOWEL HABIT 10/04/2015 JENNIFER BUSH, MARCIA M Ot K20.9 ESOPHAGITIS, UNSPECIFIED 10/04/2015 JENNIFER BUSH, MARCIA Ferrell Ot K25.9 GASTRIC ULCER, UNSP ACUTE OR CHRONIC, 10/04/2015 JENNIFER BUSH, MARCIA M Ot R19.4 CHANGE IN BOWEL HABIT 06/05/2016 ERNIE GALLOWAY LOCKSTITCH SHOULDER JOINER Ot F41.9 ANXIETY DISORDER, UNSPECIFIED 06/20/2016 ERNIE GALLOWAY LOCKSTITCH SHOULDER JOINER Ot F41.9 ANXIETY DISORDER, UNSPECIFIED 07/02/2016 FELIPE WILL WOOL SAMPLER Ot K59.00 CONSTIPATION, UNSPECIFIED 09/30/2017 ERNIE GALLOWAY LOCKSTITCH SHOULDER JOINER Ot F41.9 ANXIETY DISORDER, UNSPECIFIED 10/03/2017 ERNIE GALLOWAY LOCKSTITCH SHOULDER JOINER Ot F41.9 ANXIETY DISORDER, UNSPECIFIED 10/07/2017 KORY DILLARD DO S Ot Z36.89 ENCOUNTER FOR OTHER SPECIFIED 10/07/2017 TROYECH KORY TODD S Ot Z3A.17 17 WEEKS GESTATION OF 10/23/2017 TROYECH KORY TODD S Ot Z36.89 ENCOUNTER FOR OTHER SPECIFIED 10/23/2017 TROYECH DOKORY S Ot Z3A.17 17 WEEKS GESTATION OF 03/15/2018 KORY DILLARD DO S Ot O24.410 GESTATIONAL DIABETES MELLITUS IN PREGNAN 03/15/2018 KORY DILLARD DO S Ot Z37.0 SINGLE LIVE 03/15/2018 KORY DILLARD DO S Ot Z3A.39 39 WEEKS GESTATION OF 05/13/2019 W K43.9 Vent ral hernia Juju Bradley 05/13/2019 W R10.13 Epi gastric pain Juju Bradley Procedures Code Description [place] [address] ROUT INE VENIPUNCTURE 03/04/2012 71196 UA W / CULTURE IF INDICATED 03/04/2012 32553 CMP 03/04/2012 3468564 GF R CALC (RESULT ONLY) 03/04/2012 89070 ROUT INE VENIPUNCTURE 01/06/[address] A BDOMEN & PELVIS W/O CONTRAST 01/06/2013 48229 UA W / CULTURE IF INDICATED 01/06/2013 44039 URIN E TEST (IN- HOUSE) 01/06/2013 94953 CBC 01/07/20138033962 GF R CALC (RESULT ONLY) 01/07/2013 29377 CMP 01/07/2013 51L8UCJ DE LIVERY OF PRODUCTS OF CONCEPTION, EXTE 03/13/2018 Results Test Result Range Urine beta human chorionic gonadotropin (hCG) measurement - 10/03/15 10:23 Urine beta human chorionic gonadotropin (hCG) measurem ent NEGATIVE NEGATIVE Automated blood complete blood count (he mogram) panel - 05/30/16 10:00 Blood leukocytes automated count (number/volume) 8.7 10*3/uL 4.3-11.0 Blood erythrocytes automated count (number/volume) 4.63 10*6/uL 4.35-5.85 Venous blood hemoglobin measurement (mass/volume) 14.0 g/dL 11.5-16.0 Blood hematocrit (volume fraction) 40 % 35-52 Automated erythrocyte mean corpuscular volume 87 [ foz_us] 80-99 Automated erythrocyte mean corpuscular h emoglobin (mass per erythrocyte) 30 pg 25-34 Automated erythrocyte mean corpuscular h emoglobin concentration measurement (mass/volume) 35 g/dL 32-36 Automated erythrocyte distribution width ratio 12. 1 % 10.0- 14.5 Automated blood platelet count (count/volume) 307 10*3/uL [...] 5-14 Serum or plasma urea nitrogen measurement (mass/volume ) 11 mg/dL 7-18 Serum or plasma creatinine measurement (mass/volume) 0.76 mg/dL 0.60-1.30 Serum or plasma urea nitrogen/creatinine mass ratio 14 NRG Serum or plasma creatinine measurement w ith calculation of estimated glomerular filtration rate > NRG Serum or plasma glucose measurement (mass/volume) 101 mg/dL 70-105 Serum or plasma calcium measurement (mass/volume) 9.3 mg/dL 8.5-10.1 Serum or plasma total bilirubin measurement (mass/volu me) 1.0 mg/dL 0.1-1.0 Serum or plasma alkaline phosphatase jameson surement (enzymatic activity/volume) 72 U/L 40-136 Serum or plasma aspartate aminotransfera se measurement (enzymatic activity/volume) 14 U/L 5-34 Serum or plasma alanine aminotransferase measurement (enzymatic activity/volume) 11 U/L 0-55 Serum or plasma protein measurement (mass/volume) 7.3 g/dL 6.4-8.2 Serum or plasma albumin measurement (mass/volume) 4.3 g/dL 3.2-4.5 THYROID STIMULATING HORMONE - 05/30/16 1 0:00 THYROID STIMULATING HORMONE 1.23 u[iU]/mL 0.35-4.94 Serum or plasma thyroxine (T4) free maribel urement (mass/volume) - 05/30/16 10:00 Serum or plasma thyroxine (T4) free measurement (mass/ volume) 1.05 ng/dL 0.70-1.48 Complete blood count (CBC) with automate d white blood cell (WBC) differential - 03/13/18 15:35 Blood leukocytes automated count (number/volume) 6.8 10*3/uL 4.3-11.0 Blood erythrocytes automated count (number/volume) 4.13 10*6/uL 4.35-5.85 Venous blood hemoglobin measurement (mass/volume) 12.5 g/dL 11.5-16.0 Blood hematocrit (volume fraction) 37 % 35-52 Automated erythrocyte mean corpuscular volume 90 [ foz_us] 80-99 Automated erythrocyte mean corpuscular h emoglobin (mass per erythrocyte) 30 pg 25-34 Automated erythrocyte mean corpuscular h emoglobin concentration measurement (mass/volume) 34 g/dL 32-36 Automated erythrocyte distribution width ratio 13. 1 % 10.0- 14.5 Automated blood platelet count (count/volume) 315 10*3/uL 130-400 Automated blood platelet mean volume measurement 9.5 [foz_us] 7.4-10.4 Automated blood neutrophils/100 leukocytes 73 % 42-75 Automated blood lymphocytes/100 leukocytes 19 % 12-44 Blood monocytes/100 leukocytes 7 % 0-12 Automated blood eosinophils/100 leukocytes 0 % 0-10 Automated blood basophils/100 leukocytes 0 % 0-10 Blood neutrophils automated count (number/volume) 4.9 10*3 1.8-7.8 Blood lymphocytes automated count (number/volume) 1.3 10*3 1.0-4.0 Blood monocytes automated count (number/volume) 0. 5 10*3 0.0-1.0 Automated eosinophil count 0.0 10*3/uL 0 .0-0.3 Automated blood basophil count (count/volume) 0.0 10*3/uL 0.0-0.1 Blood type T Indirect antibody screen [facility] - 03/13/18 15:35 ABO+Rh group OP NRG Transfusion band number [id number] Blood group antibody screen NEGATIVE NR G Complete blood count (CBC) with automate d white blood cell (WBC) differential - 03/14/18 04:10 Blood leukocytes automated count (number/volume) 12.3 10*3/uL 4.3-11.0 Blood erythrocytes automated count (number/volume) 3.83 10*6/uL 4.35-5.85 Venous blood hemoglobin measurement (mass/volume) 11.7 g/dL 11.5-16.0 Blood hematocrit (volume fraction) 35 % 35-52 Automated erythrocyte mean corpuscular volume 90 [ foz_us] 80-99 Automated erythrocyte mean corpuscular h emoglobin (mass per erythrocyte) 31 pg 25-34 Automated erythrocyte mean corpuscular h emoglobin concentration measurement (mass/volume) 34 g/dL 32-36 Automated erythrocyte distribution width ratio 13. 3 % 10.0- 14.5 Automated blood platelet count (count/volume) 319 10*3/uL 130-400 Automated blood platelet mean volume measurement 9.4 [foz_us] 7.4-10.4 Automated blood neutrophils/100 leukocytes 80 % 42-75 Automated blood lymphocytes/100 leukocytes 13 % 12-44 Blood monocytes/100 leukocytes 7 % 0-12 Automated blood eosinophils/100 leukocytes 0 % 0-10 Automated blood basophils/100 leukocytes 0 % 0-10 Blood neutrophils automated count (number/volume) 9.8 10*3 1.8-7.8 Blood lymphocytes automated count (number/volume) 1.6 10*3 1.0-4.0 Blood monocytes automated count (number/volume) 0. 8 10*3 0.0-1.0 Automated eosinophil count 0.0 10*3/uL 0 .0-0.3 Automated blood basophil count (count/volume) 0.0 10*3/uL 0.0-0.1 Encounters ACCT No. Visit Date/Time Discharge Status Pt. Type Provider Facility Loc./Unit Complaint [id number] 01/06/2013 15:13:00 01/06/2013 23:59: 59 CLS Outpatient SIOBHAN STEWART MD [id number] 03/04/2012 08:44:00 03/04/2012 23:59: 59 CLS Outpatient ROBERT AVILA PA-C [id number] 03/03/2012 17:58:00 03/03/2012 23:59: 59 CLS Outpatient [id number] 03/04/2012 08:44:00 Document Registration 05/201706/11/2018 08:22:22 06/11/2018 23:59 :59 CLS Outpatient Juju Bradley [id number] 05/13/2019 15:54:00 Document Registration [id number] 03/13/2018 14:25:00 019 12:25:00 DIS Inpatient KORY DILLARD DO [facility] LDRP INDUCTION OF LABOR [id number] 10/04/2017 15:55:00 018 23:59:59 CLS Outpatient KORY DILLARD DO [facility] RAD [id number] 05/30/2016 09:40:00 017 23:59:59 CLS Outpatient ERNIE GALLOWAY [facility] LAB ANXIETY [id number] 10/03/2015 10:12:00 016 14:05:00 DIS Outpatient MARCIA RODRIGUEZ MD [facility] SDC IRREGULAR BOWEL MOVEME NTS; GERD [id number] 09/29/2015 05:58:00 016 23:59:59 CLS Outpatient MARCIA RODRIGUEZ MD [facility] PREOP IRREGULAR BOWEL MOVEME NT; GERD [id number] 06/10/2015 16:08:00 016 23:59:59 CLS Outpatient FELIPE WILL APRN [facility] RAD LLQ PAIN,EPIGAS TRIC,LUQ [id number] 09/24/2014 14:23:00 015 23:59:59 CLS Outpatient CHEPE VEGA [facility] RAD [id number] 06/24/2012 10:43:00 013 23:59:59 CLS Outpatient JOIE BUSH, MATTHEW March [facility] RAD [id number] 09/24/2014 14:21:00 Document Registration [id number] 09/24/2014 14:21:00 Document Registration [id number] 05/05/2012 10:15:00 Document Registration
[2019-05-20] MEDS ORDERED: CLINDAMYCIN 600 MG/50 ML IVPB 50 ML IV ONE (07:45)
[2019-05-20] MEDS ORDERED: CATHETER FLUSH 10 ML SYR IV PRN (07:45)
[2019-05-20] MEDS ORDERED: NEOSTIGMINE 3 MG/3 ML VIAL ONE (07:53)
[2019-05-20] MEDS ORDERED: LIDOCAINE PF 2% 5 ML (XYLOCAINE) VIAL ONE (07:53)
[2019-05-20] MEDS ORDERED: SEVOFLURANE (ULTANE) 15 ML INHAL SOLN ONE (07:53)
[2019-05-20] MEDS ORDERED: MIDAZOLAM 2 MG/2 ML (VERSED) VIAL ONE (07:53)
[2019-05-20] MEDS ORDERED: ROCURONIUM 10 MG/ML 5 ML SYRINGE IV ONE (07:53)
[2019-05-20] MEDS ORDERED: GLYCOPYRROLATE 0.2 MG/ML (ROBINUL) 2 ML VIAL ONE (07:53)
[2019-05-20] MEDS ORDERED: fentaNYL INJECTION 100 MCG/2 ML AMP ONE (07:53)
[2019-05-20] MEDS ORDERED: proPOfol 200 MG/20 ML (DIPRIVAN) VIAL IV ONE (07:53)
[2019-05-20] MEDS ORDERED: ONDANSETRON 4 MG/2 ML (SDV) Z0FRAN ONE (07:53)
[2019-05-20] MEDS: LACTATED RINGERS 1,000 ML IV PRN ×2 (08:04→09:51)
[2019-05-20] MEDS ORDERED: BUP/EPI 0.5% 1:200,000 (SENSORCAINE) 30 ML VIAL ONE (08:54)
--- NOTE | 2019-05-20 09:03 | Progress Note-Pre Operative ---
Pre-Operative Progress Note H&P Reviewed The H&P was reviewed, patient examined and no changes noted. Time Seen by Provider: 08:58 Date H&P Reviewed: May 20, 2019 Time H&P Reviewed: 08:59 Pre-Operative Diagnosis: incarcerated umbilical hernia CADENCE SUMMERS DO May 20, 2019 09:03
--- NOTE | 2019-05-20 10:11 | Progress Note-Post Operative ---
Post-Operative Progess Note Surgeon (s)/Boiler Fitter (s) Surgeon CADENCE SUMMERS DO Boiler Fitter: Felicia Pre-Operative Diagnosis incarcerated umbilical hernia Post-Operative Diagnosis Incarcerated Ventral hernia Procedure & Operative Findings Date of Procedure 05/20/19 Procedure Performed/Findings PROCEDURE: Laparoscopic [Ventral] hernia repair with mesh. COMPLICATIONS: None. INDICATIONS: The patient is a 39, female with an [incarcerated ventral] hernia, which has continued to increase in size and cause discomfort. The patient was explained the risk and benefits of the procedure and wished to proceed with the procedure. Consent was signed on the chart. DESCRIPTION OF PROCEDURE: The patient was taken into the operating suite, prepped and draped in sterile fashion. Surgical pause was performed. Local anesthetic was infiltrated in left upper quadrant. A #11 blade scalpel was used to make a small skin incision. Cautery was used to dissect down to the fascia, which was then scored and divided the muscle, went through the posterior sheath and a balloon trocar was inserted into the abdomen. The abdomen was then insufflated. A 5 mm trocar was placed in the right mid abdomen and a 5 mm trocar was placed in left lower quadrant. Using cautery and then Ligasure to remove the incarcerated fat. [The fascial defect was above the umbilicus, so this was a Ventral hernia. Able to remove a large amount of fat that was incarcerated in the hole, pictures taken.] [The defect was small so elected not to close with a Casper-Katiuska]. Echo Ventralight 4.5 inch roundmesh was then inserted in the abdomen grabbed through a stab incision. The balloon was inflated on the mesh. Circumferential tacks were placed with a SecureStrap Tacker. The balloon was then removed and inner crown was created as well. The mesh was tacked with pressure being decreased to about 8. The 12 mm fascial defect was then closed using 0 Vicryl figure of 8 suture. The abdomen was then desufflated,the trocars were removed. The skin was then closed using 4-0 Monocryl in simple interuppted subcuticular fashion. The abdomen was washed and dried and Skin Affix was placed over the incisions. The sponge, instrument and needle count were correct at the end of the case. The patient tolerated procedure well without any complications. She was taken to recovery room in stable condition. Anesthesia Type GET Estimated Blood Loss Estimated blood loss (mL): scant Specimens/Packing Specimens Removed none CADENCE SUMMERS DO May 20, 2019 10:11
[2019-05-20] MEDS ORDERED: HYDR-4226 PO (10:12)
--- NOTE | 2019-05-20 10:13 | Discharge Inst-Surgical ---
Discharge Inst-Surgical Depart Medication/Instructions New, Converted or Re-Newed RX: RX Given to Pt/Family Patient Instructions Follow up Appt: Make appointment for 1 week. [phone] Instructions: No lifting greater than 20 pounds. No strenuous activity. May shower in 24 hours, no tub bath or soaking. Use incentive spirometer at home as directed. No Smoking Skin/Wound Care: May remove bandages in am. You need to leave the Dermabond on incision it will fall off on it's own. Symptoms to Report: Appetite Changes, Extremity Discoloration, Numbness/Tingling, Swelling Increased, Bleeding Excessive, Eyesight Changes, Pain Increased, Urine Color Change, Constipation(Persistent), Fever over 101 degree F, Pain/Pressure in chest, Urinating Difficulty, Cough Up/Vomit Blood, Heart Beat Irreg/Pounding, Pain/Pressure in jaw, Cramps in feet or legs, Lightheadedness, Pain/Pressure in shoulder, Diarrhea(Persistent), Memory Changes Suddenly, Questions/Concerns, Weight gain consecutive days, Dizziness/Fainting, Nausea/Vomiting, Shortness of Breath, Weight gain over 2 pounds If questions or concerns contact your physician Or seek help at emergency department. Activity Activity as Tolerated: Yes Activity Instructions: Avoid Stress to Incision Driving Instructions: No Driving/Refer to Dr. Valdivia Discharge Diet: No Restrictions Diet After 24 Hours: Clear Liquid if Nauseous If Any Problems/Questions/Issu: Contact Your Physician, Go to Emergency Room Skin/Wound Care Infection Signs and Symptoms: Increased Redness, Foul Odor of Wound, Increased Drainage, Skin Itchy or Has a Rash, Increased Swelling, Temperature Above 101 F Wound Care Comment: Use heating pad to shoulder or neck tonight for pain Bathing Instructions: Shower Stitches/Thor/Dermabond Dis: Dermabond Ice Pack: Ice On and Off Site (at incision sites) CADENCE SUMMERS DO May 20, 2019 10:13
[2019-05-20] MEDS ORDERED: KETOROLAC 30 MG/ML VIAL ONE (10:20)
[2019-05-20] MEDS ORDERED: HYDROmorphone 2 MG/ML VIAL (DILAUDID) ONE (10:20)
--- NOTE | 2019-05-20 10:24 | Anesthesia-General Post-Op ---
General Patient Condition Mental Status/LOC: Same as Preop Cardiovascular: Satisfactory Nausea/Vomiting: Absent Respiratory: Satisfactory Pain: Controlled Complications: Absent Post Op Complications Complications None Follow Up Care/Instructions Patient Instructions None needed. Anesthesia/Patient Condition Patient Condition Patient is doing well, no complaints, stable vital signs, no apparent adverse anesthesia problems. No complications reported per nursing. JOHAN DEAN CRNA May 20, 2019 10:23
[2019-05-20] MEDS ORDERED: morphine INJ 10 MG/ML 1ML (SYR OR VIAL) IVP ONE (10:30)
[2019-05-20] MEDS ORDERED: PROMETHAZINE INJ 25 MG/ML (PHENERGAN) AMP IVP ONE (10:30)
[2019-05-20] MEDS ORDERED: MEPERIDINE (DEMEROL) INJ 50 MG/ML IVP ONE (10:30)
[2019-05-20] MEDS ORDERED: ONDANSETRON 4 MG/2 ML (SDV) Z0FRAN IVP PRN (10:30)
[2019-05-20] MEDS ORDERED: fentaNYL INJECTION 100 MCG/2 ML AMP IVP ONE (10:30)
[2019-05-20] MEDS ORDERED: HYDROmorphone 2 MG/ML VIAL (DILAUDID) IV ONE (10:30)
[2019-05-20] MEDS ORDERED: KETOROLAC 30 MG/ML VIAL IVP ONE (10:30)
[2019-05-20] MEDS ORDERED: HYDROcodone/APAP 5 MG/325 MG (LORTAB) TAB ONE (11:36)
[2019-05-20] MEDS ORDERED: HYDROcodone/APAP 5 MG/325 MG (LORTAB) TAB PO ONE (11:45)
[2019-05-20] MEDS ORDERED: ONDANSETRON 4 MG/2 ML (SDV) Z0FRAN IVP ONE (12:45)
== END 2019-05-20 12:55 | disposition home or self-care (01) ==
LOC: SDC 07:24
PROVIDERS: ATTEND Surgery
DX: K43.6 Other and unspecified ventral hernia with obstruction, without gangrene (principal); K21.9 Gastro-esophageal reflux disease without esophagitis; Z88.0 Allergy status to penicillin; Z83.3 Family history of diabetes mellitus
CPT/HCPCS: 84703; 87081

== ENCOUNTER → 2020-03-03 | Outpatient (CLI) | payer BC ==
[~2020-03-03] MED LIST changes: +HYDR-4226 PO
--- NOTE | 2020-03-03 11:39 | Diagnostic Imaging Report ---
PROCEDURE: Pelvic comp/transvaginal sonogram. TECHNIQUE: Complete transabdominal and transvaginal pelvic ultrasound was performed. In addition, limited pelvic Doppler was performed. INDICATION: Dyspareunia. Uterus is anteverted measuring 8.9 x 5.1 x 6.4 cm. Endometrium is 12 mm in thickness. There is an area of myometrial heterogeneity anteriorly measuring approximately 2.2 x 1.5 cm. This could represent a fibroid. No other myometrial masses are detected. Right ovary measures 2.9 x 1.9 x 2.8 cm and the left ovary measures 2.1 x 1.8 x 2.4 cm. Right ovary does contain a 2.1 cm cyst. There is blood flow to both ovaries. No other adnexal mass is seen. There is no free fluid. IMPRESSION: 1. Probable small uterine fibroid. 2. A 2 cm right ovarian cyst. Dictated by: Dictated on workstation # [id number]
== END ==
LOC: RAD 10:00
PROVIDERS: ATTEND Obstetrics & Gynecology
DX: N94.12 Deep dyspareunia (principal); N83.201 Unspecified ovarian cyst, right side
CPT/HCPCS: 76830; 76856

== ENCOUNTER → 2021-02-02 | Outpatient (CLI) | payer BC ==
--- NOTE | 2021-02-06 08:24 | Diagnostic Imaging Report ---
INDICATION: Routine screening. Comparison is made with prior mammogram 06/24/2012. 2-D and 3-D bilateral screening mammography was performed with CAD. Both breasts are heterogeneously dense, limiting the sensitivity of mammography. No mass or malignant-appearing microcalcifications are seen. Axillae are unremarkable. IMPRESSION: No mammographic features suspicious for malignancy are identified. BI-RADS Category 1 ACR BI-RADS Category 1: Negative. Result letter will be mailed to the patient. Note: At least 10% of breast cancer is not imaged by mammography. Dictated by: Dictated on workstation # [id number]
== END ==
LOC: RAD 15:51
PROVIDERS: ATTEND Family Medicine
DX: Z12.31 Encounter for screening mammogram for malignant neoplasm of breast (principal)
CPT/HCPCS: 77063; 77067